=== PATIENT | female | born 1990 | race African-American/Black ===

== ENCOUNTER 2017-01-23 10:17 | Emergency (ER) | payer BC ==
[~2017-01-23] VITALS: Ht 165.1 cm; Wt 101.0 kg
[~2017-01-23 10:17] MED LIST: ALBU6.7H INH; CLAR10 PO; FAMO20TA8 PO; Fluticasone Propionate BOTHNSTRLS; Guaifenesin PO; LEVO250T2 PO; P20 PO; PRED5TAB48 PO
[2017-01-23] MEDS ORDERED: METHYLPREDNISOLONE SOD SUCC 125 MG/2 ML VIAL IV STA (11:16)
[2017-01-23] MEDS ORDERED: MAGNESIUM 2 G PREMIX 50 ML IV ONE (11:30)
[2017-01-23] MEDS ORDERED: AZITHROMYCIN 500 MG TABLET PO ONE (11:30)
[2017-01-23] MEDS ORDERED: IPRATROPIUM/ALBUTEROL 0.5-3(2.5)MG/3ML NEB HHN ONE (11:30)
[2017-01-23 11:33] LABS: BG BASE EXCESS 2.1 mmol/L (-2.0-2.0); BG CARBOXYHEMOGLOBIN 0.5 % (0.5-1.5); BG DEOXYHEMOGLOBIN 3.4 % (0.0-5.0); BG FRACTION INSPIRED OXYGEN 28; BG HCO3 ACT 27.3 mmol/L (22.0-26.0); BG METHEMOGLOBIN 0.3 % (0.0-1.5); BG OXYGEN SATURATION 96.6 % (92.0-98.5); BG OXYHEMOGLOBIN 95.8 % (94.0-97.0); BG PCO2 45.2 mmHg (35.0-45.0); BG PH 7.399 (7.350-7.450); BG PO2 85.4 mmHg (75.0-100.0); BG SAMPLE SITE RIGHT BRACHIAL; BG TOTAL HEMOGLOBIN 12.1 g/dL (12.0-18.0); BG VENT MODE NASAL CANNULA
[2017-01-23 11:58] LABS: BASOPHILS % 1.4 % (0.0-2.0); EOSINOPHILS % 5.3 % (0.0-5.0); HEMATOCRIT. 33.5 % (36.0-48.0); HEMOGLOBIN. 10.9 g/dL (12.0-16.0); LYMPHOCYTES % 17.3 % (20.0-50.0); MEAN CORPUSCULAR HEMOGLOBIN 25.5 pg (28.0-32.0); MEAN CORPUSCULAR VOLUME 78.1 fL (81.0-99.0); MEAN PLATELET VOLUME 7.8 fl (7.4-10.4); MONOCYTES % 5.5 % (2.0-8.0); NEUTROPHILS % 70.5 % (40.0-76.0); PLATELET 356 x1000/uL (130-400); RED BLOOD CELL COUNT 4.28 mill/uL (4.2-5.4); RED CELL DISTRIBUTION WIDTH 15.4 % (11.6-14.6)
[2017-01-23 12:03] LABS: PARTIAL THROMBOPLASTIN TIME 25.4 sec (24.0-34.0); PROTHROMBIN TIME 10.7 sec
[2017-01-23 12:10] LABS: CARBON DIOXIDE 28 mEq/L (21-32); CHLORIDE 106 mEq/L (98-107)
[2017-01-23 12:11] LABS: CREATINE KINASE 401 IU/L (26-192); TROPONIN I < 0.02 ng/mL (0.00-0.04)
[2017-01-23 12:22] LABS: HCG SCREEN POSITIVE
[2017-01-23 17:26] VITALS: BP 125/63
[2017-01-23] MEDS ORDERED: ALBUTEROL (0.5%) 2.5MG/0.5ML NEB HHN ONE (17:30)
== END 2017-01-23 17:45 | disposition home or self-care (01) ==
LOC: ER 11:02
DX: J45.901 Unspecified asthma with (acute) exacerbation (principal); F17.290 Nicotine dependence, other tobacco product, uncomplicated
CPT/HCPCS: 36415; 36600; 80053; 82375; 82550; 82805; 83605; 83690; 83880; 84443; 84484; 84702; 84703; 85025; 85610; 85730; 87040; 93005; 94640; 96365; 96366; 96375; 99285; 99406; J2930; J3475; J7611; Z7610; J7620

== ENCOUNTER 2017-03-29 13:09 | Emergency (ER) | payer BC ==
[~2017-03-29] VITALS: Ht 165.1 cm; Wt 105.0 kg
[2017-03-29] MEDS ORDERED: IBUPROFEN 600MG TABLET ONE (18:18)
[2017-03-29 18:25] VITALS: BP 137/90
[2017-03-29] MEDS ORDERED: IBUPROFEN 600MG TABLET PO ONE (18:30)
== END 2017-03-29 18:33 | disposition home or self-care (01) ==
LOC: ER 15:48
DX: R07.9 Chest pain, unspecified (principal); M25.512 Pain in left shoulder
CPT/HCPCS: 73030; 81025; 93005; 99284; A4565

== ENCOUNTER 2017-05-21 12:31 | Emergency (ER) | payer BC ==
[~2017-05-21] VITALS: Ht 165.1 cm; Wt 105.0 kg
[2017-05-21] MEDS ORDERED: ALBUTEROL (0.083%) 2.5MG/3ML NEB HHN STA (17:28)
[2017-05-21] MEDS ORDERED: IPRATROPIUM BROMIDE (0.02%) 0.5MG/2.5ML NEB HHN STA (17:28)
[2017-05-21] MEDS ORDERED: METHYLPREDNISOLONE SOD SUCC 125 MG/2 ML VIAL IV STA (17:28)
[2017-05-21] MEDS ORDERED: METHYLPREDNISOLONE SOD SUCC 125 MG/2 ML VIAL IM SCH (17:30)
[2017-05-21 18:34] VITALS: BP 144/78
== END 2017-05-21 19:12 | disposition home or self-care (01) ==
LOC: ER 13:23
DX: J45.901 Unspecified asthma with (acute) exacerbation (principal); J06.9 Acute upper respiratory infection, unspecified; F12.10 Cannabis abuse, uncomplicated; Z98.890 Other specified postprocedural states
CPT/HCPCS: 71010; 94644; 96372; 99285; J2930; J7611; Z7610

== ENCOUNTER 2017-07-09 06:36 | Emergency (ER) | payer BC, MEDICAID ==
[~2017-07-09] VITALS: Ht 165.1 cm; Wt 105.0 kg
[2017-07-09] MEDS: METHYLPREDNISOLONE SOD SUCC 125 MG/2 ML VIAL IV STA (07:16)
[2017-07-09] MEDS: ALBUTEROL (0.083%) 2.5MG/3ML NEB HHN STA ×2 (07:27→09:04)
[2017-07-09] MEDS: IPRATROPIUM BROMIDE (0.02%) 0.5MG/2.5ML NEB HHN STA ×2 (07:27→09:47)
[2017-07-09] MEDS: IBUPROFEN 600MG TABLET PO ONE (09:46)
[2017-07-09 11:08] VITALS: BP 127/66
[2017-07-16] MEDS ORDERED: AMLO10TA80 PO (11:23)
== END 2017-07-09 11:12 | disposition home or self-care (01) ==
LOC: ER 06:36
DX: J45.901 Unspecified asthma with (acute) exacerbation (principal); I51.7 Cardiomegaly; J84.9 Interstitial pulmonary disease, unspecified; F12.10 Cannabis abuse, uncomplicated
CPT/HCPCS: 71045; 81025; 94640; 96374; 99284; J2930; J7611; Z7610

== ENCOUNTER 2017-09-13 06:11 | Emergency (ER) | payer MEDICAID ==
[~2017-09-13] VITALS: Ht 165.1 cm; Wt 103.0 kg
[~2017-09-13 06:11] MED LIST changes: +AMLO10TA80 PO; -Guaifenesin PO; -LEVO250T2 PO; -P20 PO; -PRED5TAB48 PO
[2017-09-13] MEDS ORDERED: IPRATROPIUM/ALBUTEROL 0.5-3(2.5)MG/3ML NEB HHN ONE (07:00)
[2017-09-13 09:02] VITALS: BP 140/89
== END 2017-09-13 09:18 | disposition home or self-care (01) ==
LOC: ER 06:29
DX: J20.9 Acute bronchitis, unspecified (principal); J45.909 Unspecified asthma, uncomplicated; Z98.890 Other specified postprocedural states
CPT/HCPCS: 94640; 99284; J7620

== ENCOUNTER 2018-05-14 07:58 | Emergency (ER) | payer MEDICAID ==
[~2018-05-14] VITALS: Ht 165.1 cm; Wt 107.0 kg
[~2018-05-14 07:58] MED LIST changes: -AMLO10TA80 PO; +AMLO5TAB88 PO; -CLAR10 PO; -FAMO20TA8 PO; -Fluticasone Propionate BOTHNSTRLS; +METF500T PO; +P20 PO
[2018-05-14] MEDS ORDERED: METHYLPREDNISOLONE SOD SUCC 125 MG/2 ML VIAL IV STA (08:24)
[2018-05-14] MEDS ORDERED: ALBUTEROL (0.083%) 2.5MG/3ML NEB HHN STA (08:24)
[2018-05-14] MEDS ORDERED: IPRATROPIUM BROMIDE (0.02%) 0.5MG/2.5ML NEB HHN STA (08:24)
[2018-05-14] MEDS ORDERED: ACETAMINOPHEN WITH CODEINE 300/30MG TABLET PO ONE (09:30)
[2018-05-14 12:15] VITALS: BP 133/80
== END 2018-05-14 12:25 | disposition home or self-care (01) ==
LOC: ER 09:09
DX: J45.901 Unspecified asthma with (acute) exacerbation (principal); I10 Essential (primary) hypertension; Z98.890 Other specified postprocedural states; Z79.899 Other long term (current) drug therapy
CPT/HCPCS: 71045; 81025; 93005; 94640; 96374; 99283; J2930; J7611

== ENCOUNTER 2018-06-03 08:48 | Emergency (ER) | payer MEDICAID ==
[~2018-06-03] VITALS: Ht 165.1 cm; Wt 102.7 kg
[2018-06-03] MEDS ORDERED: SODIUM CHLORIDE 0.9% 1,000 ML IV ONE (09:21)
[2018-06-03] MEDS ORDERED: METHYLPREDNISOLONE SOD SUCC 125 MG/2 ML VIAL IV STA (09:21)
[2018-06-03] MEDS ORDERED: IPRATROPIUM BROMIDE (0.02%) 0.5MG/2.5ML NEB HHN STA (09:21)
[2018-06-03] MEDS ORDERED: ALBUTEROL (0.083%) 2.5MG/3ML NEB HHN SCH (09:30)
[2018-06-03 09:48] LABS: EOSINOPHILS % 3.5 % (0.0-5.0); HEMATOCRIT. 40.1 % (36.0-48.0); LYMPHOCYTES % 21.5 % (20.0-50.0); MEAN CORPUSCULAR HEMOGLOBIN 25.9 pg (28.0-32.0); MEAN CORPUSCULAR VOLUME 79.9 fL (81.0-99.0); MEAN PLATELET VOLUME 8.2 fl (7.4-10.4); MONOCYTES % 6.5 % (2.0-8.0); NEUTROPHILS % 67.5 % (40.0-76.0); PLATELET 331 x1000/uL (130-400); RED BLOOD CELL COUNT 5.02 mill/uL (4.2-5.4); RED CELL DISTRIBUTION WIDTH 16.2 % (11.6-14.6)
[2018-06-03 10:02] LABS: CHLORIDE 104 mEq/L (98-107)
[2018-06-03 10:11] LABS: HCG SCREEN NEGATIVE
[2018-06-03 11:02] VITALS: BP 151/81
== END 2018-06-03 11:29 | disposition home or self-care (01) ==
LOC: ER 08:48
DX: J45.901 Unspecified asthma with (acute) exacerbation (principal); E11.9 Type 2 diabetes mellitus without complications; I10 Essential (primary) hypertension; Z98.890 Other specified postprocedural states
CPT/HCPCS: 36415; 71045; 80053; 81025; 83605; 84484; 84703; 85025; 93005; 94640; 96374; 99285; J2930; J7030; J7611

== ENCOUNTER 2018-06-14 10:52 | Emergency (ER) | payer MEDICAID ==
[~2018-06-14] VITALS: Ht 165.1 cm; Wt 105.0 kg
[2018-06-14] MEDS ORDERED: IPRATROPIUM BROMIDE (0.02%) 0.5MG/2.5ML NEB HHN STA (11:51)
[2018-06-14] MEDS ORDERED: ALBUTEROL (0.083%) 2.5MG/3ML NEB HHN STA (11:51)
[2018-06-14] MEDS ORDERED: PREDNISONE 20MG TABLET PO STA (11:51)
[2018-06-14 13:39] VITALS: BP 144/77
== END 2018-06-14 13:43 | disposition home or self-care (01) ==
LOC: ER 11:38
DX: J45.901 Unspecified asthma with (acute) exacerbation (principal); J40 Bronchitis, not specified as acute or chronic; E11.9 Type 2 diabetes mellitus without complications; I10 Essential (primary) hypertension; Z98.890 Other specified postprocedural states; Z79.899 Other long term (current) drug therapy
CPT/HCPCS: 94640; 99283; J7512; J7611

== ENCOUNTER 2018-07-23 09:01 | Inpatient (IN) | payer MEDICAID ==
[~2018-07-23] VITALS: Ht 165.1 cm; Wt 104.8 kg
[2018-07-23] MEDS ORDERED: ALBUTEROL (0.083%) 2.5MG/3ML NEB HHN STA ×2 (10:32→15:36)
[2018-07-23] MEDS ORDERED: IPRATROPIUM BROMIDE (0.02%) 0.5MG/2.5ML NEB HHN STA ×2 (10:32→15:36)
[2018-07-23] MEDS ORDERED: PREDNISONE 20MG TABLET PO STA (10:32)
[2018-07-23] MEDS ORDERED: METHYLPREDNISOLONE SOD SUCC 125 MG/2 ML VIAL IV STA (10:51)
[2018-07-23] MEDS ORDERED: MAGNESIUM 2 G PREMIX 50 ML IV STA (10:51)
[2018-07-23] MEDS ORDERED: IPRATROPIUM/ALBUTEROL 0.5-3(2.5)MG/3ML NEB ONE (10:52)
[2018-07-23] MEDS ORDERED: SODIUM CHLORIDE 0.9% 1000ML BAG (SEPSIS BOLUS) IV ONE (11:00)
[2018-07-23 11:10] LABS: CHLORIDE 105 mEq/L (98-107)
[2018-07-23 11:12] LABS: PROTHROMBIN TIME 10.3 sec (9.1-11.1)
[2018-07-23 11:16] LABS: BASOPHILS % 0.8 % (0.0-2.0); EOSINOPHILS % 3.5 % (0.0-5.0); HEMATOCRIT. 42.2 % (36.0-48.0); HEMOGLOBIN. 13.5 g/dL (12.0-16.0); LYMPHOCYTES % 17.4 % (20.0-50.0); MEAN CORPUSCULAR VOLUME 80.8 fL (81.0-99.0); MEAN PLATELET VOLUME 8.3 fl (7.4-10.4); MONOCYTES % 5.6 % (2.0-8.0); NEUTROPHILS % 72.7 % (40.0-76.0); PLATELET 315 x1000/uL (130-400); RED BLOOD CELL COUNT 5.22 mill/uL (4.2-5.4); RED CELL DISTRIBUTION WIDTH 16.6 % (11.6-14.6)
[2018-07-23 11:31] LABS: CLARITY URINE CLOUDY (CLEAR); COLOR URINE YELLOW (YELLOW); KETONES URINE NEGATIVE (NEGATIVE); LEUKOCYTE ESTERASE URINE 1+ (NEGATIVE); NITRITE URINE NEGATIVE (NEGATIVE); OCCULT BLOOD URINE NEGATIVE (NEGATIVE); PROTEIN URINE NEGATIVE (NEGATIVE); SPECIFIC GRAVITY URINE 1.026 (1.005-1.030)
[2018-07-23] MEDS ORDERED: ASPIRIN 81MG TABLET PO ONE (11:45)
[2018-07-23] MEDS ORDERED: LEVOFLOXACIN 500MG PREMIX 100 ML IV ONE (13:45)
[2018-07-23] MEDS ORDERED: DEXTROSE 50% WATER 50ML SYRINGE IV PRN (17:00)
[2018-07-23] MEDS ORDERED: GUAIFENESIN-DM 200MG-20MG/10ML UDC PO PRN (17:00)
[2018-07-23] MEDS ORDERED: IPRATROPIUM/ALBUTEROL 0.5-3(2.5)MG/3ML NEB HHN PRN (17:00)
[2018-07-23] MEDS ORDERED: ONDANSETRON HCL 4MG/2ML INJ IV PRN (17:00)
[2018-07-23] MEDS ORDERED: LEVOFLOXACIN 500MG PREMIX 100 ML IV SCH (21:30)
[2018-07-23 22:37] VITALS: BP 170/104
[2018-07-23 23:00] VITALS: BP 180/114
[2018-07-24] VITALS: BP 147/82
[2018-07-24] MEDS: METHYLPREDNISOLONE SOD SUCC 40 MG/ML VIAL IV SCH ×2 (00:12→08:42)
[2018-07-24] MEDS: IPRATROPIUM/ALBUTEROL 0.5-3(2.5)MG/3ML NEB HHN SCH ×6 (00:36→20:21)
[2018-07-24 04:00] VITALS: BP 128/76
[2018-07-24] MEDS: BLOOD SUGAR DIAGNOSTIC STRIP TEST SCH ×4 (07:40→20:31)
[2018-07-24 07:54] LABS: HEMATOCRIT. 39.8 % (36.0-48.0); HEMOGLOBIN. 12.9 g/dL (12.0-16.0); MEAN CORPUSCULAR HEMOGLOBIN 25.9 pg (28.0-32.0); MEAN PLATELET VOLUME 8.4 fl (7.4-10.4); PLATELET 303 x1000/uL (130-400); RED BLOOD CELL COUNT 4.97 mill/uL (4.2-5.4); RED CELL DISTRIBUTION WIDTH 16.8 % (11.6-14.6)
[2018-07-24 08:00] VITALS: BP 146/82
[2018-07-24 08:03] LABS: CHLORIDE 104 mEq/L (98-107)
[2018-07-24] MEDS: ACETAMINOPHEN 325MG TABLET PO PRN ×2 (08:42→17:42)
[2018-07-24] MEDS: ENOXAPARIN 30MG/0.3ML SYR SUBCUT SCH ×2 (08:42→20:31)
[2018-07-24] MEDS: INSULIN LISPRO 100 UNITS/ML SUBCUT SCH ×4 (08:45→20:32)
[2018-07-24] MEDS: AZITHROMYCIN 500 MG TABLET PO SCH (08:45)
[2018-07-24 09:00] LABS: *AMPHETAMINES SCREEN URINE NEGATIVE (NEGATIVE); *BARBITURATES SCREEN URINE NEGATIVE (NEGATIVE)
[2018-07-24 09:01] LABS: *BENZODIAZEPINES SCREEN URINE NEGATIVE (NEGATIVE); *COCAINE SCREEN URINE NEGATIVE (NEGATIVE); METHADONE URINE SCREEN NEGATIVE (NEGATIVE); OPIATES URINE SCREEN NEGATIVE (NEGATIVE); PHENCYCLIDINE URINE SCREEN NEGATIVE (NEGATIVE)
[2018-07-24 09:02] LABS: CANNABINOID URINE SCREEN PRESUMTIVE POSITIVE (NEGATIVE)
[2018-07-24 12:45] VITALS: BP 168/97
[2018-07-24] MEDS ORDERED: BUDESONIDE 0.5MG/2ML NEB HHN SCH (14:30)
[2018-07-24 16:00] VITALS: BP 126/67
[2018-07-24] MEDS ORDERED: MONTELUKAST SODIUM 10MG TABLET PO SCH (17:00)
[2018-07-24] MEDS: LORATADINE 10MG TABLET PO SCH (17:46)
[2018-07-24] MEDS: PREDNISONE 20MG TABLET PO SCH (17:47)
[2018-07-24 20:00] VITALS: BP 138/83
[2018-07-24] MEDS: FAMOTIDINE 20MG/2ML VIAL IV SCH (20:31)
[2018-07-24] MEDS ORDERED: HYDROCODONE/ACETAMINOPHEN 5/325MG TABLET PO PRN (22:15)
[2018-07-25] VITALS: BP 153/91
[2018-07-25] MEDS: IPRATROPIUM/ALBUTEROL 0.5-3(2.5)MG/3ML NEB HHN SCH ×4 (01:10→12:43)
[2018-07-25 04:00] VITALS: BP 142/84
[2018-07-25] MEDS: BLOOD SUGAR DIAGNOSTIC STRIP TEST SCH ×2 (07:40→11:54)
[2018-07-25 08:00] VITALS: BP 152/60
[2018-07-25] MEDS: PREDNISONE 20MG TABLET PO SCH (09:38)
[2018-07-25] MEDS: AZITHROMYCIN 500 MG TABLET PO SCH (09:38)
[2018-07-25] MEDS: LORATADINE 10MG TABLET PO SCH (09:38)
[2018-07-25] MEDS: FAMOTIDINE 20MG/2ML VIAL IV SCH (09:38)
[2018-07-25] MEDS: INSULIN LISPRO 100 UNITS/ML SUBCUT SCH ×2 (09:40→11:56)
[2018-07-25] MEDS: ENOXAPARIN 30MG/0.3ML SYR SUBCUT SCH (09:40)
[2018-07-25] MEDS: ACETAMINOPHEN 325MG TABLET PO PRN (09:46)
[2018-07-25 12:00] VITALS: BP 148/87
[2018-07-25 12:01] VITALS: BP 148/85
[2018-07-25 12:46] LABS: PLATELET ESTIMATE NORMAL
== END 2018-07-25 16:00 | disposition home or self-care (01) | DRG 133 ==
LOC: ER 09:08 → 7WST 15:38 → EDBEDREQTM 15:42 → EDBEDREQ 15:42 → ENRESERV 21:19
PROVIDERS: ADMIT Internal Medicine; ATTEND Internal Medicine
DX: J96.00 Acute respiratory failure, unspecified whether with hypoxia or hypercapnia (principal); R65.10 Systemic inflammatory response syndrome (SIRS) of non-infectious origin without acute organ dysfunction; J45.901 Unspecified asthma with (acute) exacerbation; E11.9 Type 2 diabetes mellitus without complications; D72.829 Elevated white blood cell count, unspecified; E66.9 Obesity, unspecified; F12.90 Cannabis use, unspecified, uncomplicated; N39.0 Urinary tract infection, site not specified; I10 Essential (primary) hypertension; Z82.49 Family history of ischemic heart disease and other diseases of the circulatory system; Z82.5 Family history of asthma and other chronic lower respiratory diseases; Z83.3 Family history of diabetes mellitus; Z98.891 History of uterine scar from previous surgery; Z68.38 Body mass index [BMI] 38.0-38.9, adult; Z88.1 Allergy status to other antibiotic agents
CPT/HCPCS: 36415; 71045; 80048; 80305; 81025; 82962; 83605; 83880; 84145; 84484; 87804; 93005; 93970; 94640; 96365; 96366; 99291; J1650; J1815; J1956; J2920; J2930; J3475; J3490; J7030; J7512; J7611; J7620; J7626

== ENCOUNTER 2018-08-12 04:49 | Emergency (ER) | payer MEDICAID ==
[~2018-08-12] VITALS: Ht 165.1 cm; Wt 115.0 kg
[2018-08-12] MEDS ORDERED: ACETAMINOPHEN 500MG TABLET PO ONE (05:45)
[2018-08-12 06:05] LABS: HEMATOCRIT. 39.4 % (36.0-48.0); HEMOGLOBIN. 12.7 g/dL (12.0-16.0); MEAN CORPUSCULAR VOLUME 80.8 fL (81.0-99.0); MEAN PLATELET VOLUME 7.9 fl (7.4-10.4); PLATELET 262 x1000/uL (130-400); RED BLOOD CELL COUNT 4.87 mill/uL (4.2-5.4)
[2018-08-12 06:10] LABS: CHLORIDE 102 mEq/L (98-107)
[2018-08-12 06:33] LABS: CLARITY URINE CLOUDY (CLEAR); COLOR URINE YELLOW (YELLOW); KETONES URINE TRACE (NEGATIVE); LEUKOCYTE ESTERASE URINE NEGATIVE (NEGATIVE); NITRITE URINE NEGATIVE (NEGATIVE); OCCULT BLOOD URINE NEGATIVE (NEGATIVE); PROTEIN URINE 1+ (NEGATIVE); SPECIFIC GRAVITY URINE 1.025 (1.005-1.030)
[2018-08-12] MEDS ORDERED: ALBUTEROL (0.083%) 2.5MG/3ML NEB HHN STA ×2 (06:40→08:26)
[2018-08-12] MEDS ORDERED: SODIUM CHLORIDE 0.9% 1,000 ML IV ONE (06:40)
[2018-08-12] MEDS ORDERED: PREDNISONE 20MG TABLET PO STA (06:40)
[2018-08-12] MEDS ORDERED: IPRATROPIUM BROMIDE (0.02%) 0.5MG/2.5ML NEB HHN STA (06:40)
[2018-08-12 07:10] LABS: PLATELET ESTIMATE NORMAL
[2018-08-12 11:05] VITALS: BP 137/67
== END 2018-08-12 11:07 | disposition home or self-care (01) ==
LOC: ER 04:49
DX: J45.901 Unspecified asthma with (acute) exacerbation (principal)
CPT/HCPCS: 36415; 71045; 80048; 81003; 81025; 85025; 87804; 94640; 99284; J7030; J7512; J7611; Z7610

== ENCOUNTER 2018-08-14 09:32 | Inpatient (IN) | payer MEDICAID ==
[~2018-08-14] VITALS: Ht 162.6 cm; Wt 102.1 kg
[2018-08-14] MEDS ORDERED: IPRATROPIUM BROMIDE (0.02%) 0.5MG/2.5ML NEB HHN STA (10:32)
[2018-08-14] MEDS ORDERED: METHYLPREDNISOLONE SOD SUCC 125 MG/2 ML VIAL IV STA (10:32)
[2018-08-14] MEDS ORDERED: ALBUTEROL (0.083%) 2.5MG/3ML NEB HHN STA ×2 (10:32→13:13)
[2018-08-14 11:06] LABS: BASOPHILS % 0.5 % (0.0-2.0); EOSINOPHILS % 0.1 % (0.0-5.0); HEMOGLOBIN. 12.6 g/dL (12.0-16.0); LYMPHOCYTES % 12.9 % (20.0-50.0); MEAN CORPUSCULAR HEMOGLOBIN 26.1 pg (28.0-32.0); MEAN PLATELET VOLUME 8.1 fl (7.4-10.4); MONOCYTES % 9.4 % (2.0-8.0); NEUTROPHILS % 77.1 % (40.0-76.0); PLATELET 255 x1000/uL (130-400); RED BLOOD CELL COUNT 4.82 mill/uL (4.2-5.4); RED CELL DISTRIBUTION WIDTH 16.3 % (11.6-14.6)
[2018-08-14 11:13] LABS: CHLORIDE 102 mEq/L (98-107)
[2018-08-14 15:16] LABS: UCG SCREEN NEGATIVE
[2018-08-14] MEDS ORDERED: METHYLPREDNISOLONE SOD SUCC 125 MG/2 ML VIAL IV NR (16:15)
[2018-08-14] MEDS ORDERED: IPRATROPIUM/ALBUTEROL 0.5-3(2.5)MG/3ML NEB HHN SCH (20:00)
[2018-08-14] MEDS ORDERED: METHYLPREDNISOLONE SOD SUCC 125 MG/2 ML VIAL IV SCH (23:30)
[2018-08-15] VITALS (7 sets, daily range): BP systolic 109–149; BP diastolic 52–86
[2018-08-15] MEDS ORDERED: IPRATROPIUM/ALBUTEROL 0.5-3(2.5)MG/3ML NEB HHN PRN (02:00)
[2018-08-15] MEDS ORDERED: DEXTROSE 50% WATER 50ML SYRINGE IV PRN (02:00)
[2018-08-15] MEDS: CEFTRIAXONE 1,000 MG in DEXTROSE 5% WATER 50 ML IV SCH (03:17)
[2018-08-15] MEDS: IPRATROPIUM/ALBUTEROL 0.5-3(2.5)MG/3ML NEB HHN SCH ×5 (04:10→20:11)
[2018-08-15 06:19] LABS: CHLORIDE 99 mEq/L (98-107)
[2018-08-15] MEDS: BLOOD SUGAR DIAGNOSTIC STRIP TEST SCH ×4 (07:40→21:00)
[2018-08-15] MEDS ORDERED: METFORMIN HCL 1000 MG PO SCH (08:10)
[2018-08-15] MEDS ORDERED: MEDICATION NOT ON FORMULARY EA (Amlodipine Besylate 5 MG) PO SCH (09:00)
[2018-08-15 09:02] LABS: BASOPHILS % 0.3 % (0.0-2.0); EOSINOPHILS % 0.5 % (0.0-5.0); HEMOGLOBIN. 13.6 g/dL (12.0-16.0); LYMPHOCYTES % 12.2 % (20.0-50.0); MEAN CORPUSCULAR HEMOGLOBIN 25.8 pg (28.0-32.0); MEAN CORPUSCULAR VOLUME 85.5 fL (81.0-99.0); MONOCYTES % 3.1 % (2.0-8.0); NEUTROPHILS % 83.9 % (40.0-76.0); PLATELET 242 x1000/uL (130-400); RED BLOOD CELL COUNT 5.26 mill/uL (4.2-5.4); RED CELL DISTRIBUTION WIDTH 17.2 % (11.6-14.6)
[2018-08-15] MEDS: AMLODIPINE 5MG TABLET PO SCH ×2 (09:09→21:12)
[2018-08-15] MEDS: PREDNISONE 20MG TABLET PO SCH (09:09)
[2018-08-15] MEDS: METFORMIN HCL 500MG TABLET PO SCH ×2 (09:09→18:21)
[2018-08-15] MEDS: INSULIN LISPRO 100 UNITS/ML SUBCUT SCH ×4 (09:12→21:00)
[2018-08-15] MEDS ORDERED: INFLUENZA VIRUS VACCINE(AFLURIA) 0.5ML SYR IM ONE (12:00)
[2018-08-15] MEDS ORDERED: ONDANSETRON HCL 4MG/2ML INJ IV PRN (15:45)
[2018-08-15] MEDS: ACETAMINOPHEN 325MG TABLET PO PRN (16:31)
[2018-08-15] MEDS ORDERED: MONTELUKAST SODIUM 10MG TABLET PO SCH (17:00)
[2018-08-15] MEDS: BUDESONIDE 0.5MG/2ML NEB HHN SCH (20:12)
[2018-08-15] MEDS: GUAIFENESIN 600MG ER TABLET PO SCH (21:10)
[2018-08-16] VITALS: BP 129/79
[2018-08-16] MEDS: CEFTRIAXONE 1,000 MG in DEXTROSE 5% WATER 50 ML IV SCH (02:29)
[2018-08-16 04:00] VITALS: BP 149/81
[2018-08-16] MEDS: IPRATROPIUM/ALBUTEROL 0.5-3(2.5)MG/3ML NEB HHN SCH ×4 (04:00→12:46)
[2018-08-16] MEDS: BLOOD SUGAR DIAGNOSTIC STRIP TEST SCH ×2 (06:07→12:40)
[2018-08-16] MEDS ORDERED: OMEPRAZOLE 20MG CAPSULE EXTENDED RELEASE PO SCH (07:40)
[2018-08-16 08:00] VITALS: BP 123/66
[2018-08-16] MEDS: INSULIN LISPRO 100 UNITS/ML SUBCUT SCH ×2 (08:10→13:22)
[2018-08-16] MEDS: BUDESONIDE 0.5MG/2ML NEB HHN SCH (08:33)
[2018-08-16] MEDS: ACETAMINOPHEN 325MG TABLET PO PRN (08:40)
[2018-08-16] MEDS: METFORMIN HCL 500MG TABLET PO SCH (08:41)
[2018-08-16] MEDS: GUAIFENESIN 600MG ER TABLET PO SCH (08:41)
[2018-08-16] MEDS: AMLODIPINE 5MG TABLET PO SCH (08:41)
[2018-08-16] MEDS: PREDNISONE 20MG TABLET PO SCH (08:41)
[2018-08-16 12:00] VITALS: BP 138/63
[2018-08-16 13:29] VITALS: BP 138/63
== END 2018-08-16 14:00 | disposition home or self-care (01) | DRG 141 ==
LOC: ER 09:32 → 7WST 14:19 → ENRESERV 22:46
PROVIDERS: ADMIT Internal Medicine; ATTEND Internal Medicine
DX: J45.901 Unspecified asthma with (acute) exacerbation (principal); E11.9 Type 2 diabetes mellitus without complications; E66.9 Obesity, unspecified; I10 Essential (primary) hypertension; Z98.891 History of uterine scar from previous surgery; Z68.38 Body mass index [BMI] 38.0-38.9, adult; Z88.1 Allergy status to other antibiotic agents; Z79.51 Long term (current) use of inhaled steroids; Z79.84 Long term (current) use of oral hypoglycemic drugs; Z79.899 Other long term (current) drug therapy
CPT/HCPCS: 36415; 71045; 80048; 81025; 82962; 83880; 84484; 90686; 93005; 94640; 96374; 99285; J0696; J1815; J2405; J2930; J7050; J7060; J7512; J7611; J7620; J7626

== ENCOUNTER 2018-11-16 09:30 | Emergency (ER) | payer MEDICAID ==
[~2018-11-16] VITALS: Ht 165.1 cm; Wt 106.0 kg
[2018-11-16] MEDS ORDERED: PREDNISONE 20MG TABLET PO ONE (12:00)
[2018-11-16] MEDS ORDERED: ALBUTEROL (0.083%) 2.5MG/3ML NEB HHN ONE (12:00)
[2018-11-16] MEDS ORDERED: ALBUTEROL (0.083%) 2.5MG/3ML NEB ONE (13:25)
[2018-11-16] MEDS ORDERED: ALBUTEROL (0.5%) 2.5MG/0.5ML NEB HHN ONE (13:30)
[2018-11-16] MEDS ORDERED: IPRATROPIUM BROMIDE (0.02%) 0.5MG/2.5ML NEB HHN ONE (13:30)
[2018-11-16 15:50] VITALS: BP 141/80
== END 2018-11-16 16:00 | disposition home or self-care (01) ==
LOC: ER 09:30
DX: J45.901 Unspecified asthma with (acute) exacerbation (principal); E11.9 Type 2 diabetes mellitus without complications; I10 Essential (primary) hypertension; Z98.890 Other specified postprocedural states; Z79.84 Long term (current) use of oral hypoglycemic drugs; Z88.3 Allergy status to other anti-infective agents
CPT/HCPCS: 93005; 94640; 99284; J7512; J7611; Z7610

== ENCOUNTER 2018-12-09 07:04 | Emergency (ER) | payer MEDICAID ==
[~2018-12-09] VITALS: Ht 165.1 cm; Wt 105.0 kg
[2018-12-09] MEDS ORDERED: IPRATROPIUM/ALBUTEROL 0.5-3(2.5)MG/3ML NEB HHN ONE (07:45)
[2018-12-09] MEDS ORDERED: DEXAMETHASONE 4MG/ML 1ML VIAL IM ONE (08:30)
[2018-12-09] MEDS ORDERED: DEXAMETHASONE 10 MG/ML VIAL IM NR (08:45)
[2018-12-09 08:57] VITALS: BP 118/78
== END 2018-12-09 08:58 | disposition home or self-care (01) ==
LOC: ER 07:04
DX: J06.9 Acute upper respiratory infection, unspecified (principal); J45.901 Unspecified asthma with (acute) exacerbation
CPT/HCPCS: 71045; 94640; 96372; 99283; J1100; J7620

== ENCOUNTER 2019-01-19 11:12 | Emergency (ER) | payer MEDICAID ==
[~2019-01-19] VITALS: Ht 165.1 cm; Wt 106.0 kg
[2019-01-19] MEDS ORDERED: ALBUTEROL (0.083%) 2.5MG/3ML NEB HHN STA (11:30)
[2019-01-19] MEDS ORDERED: IPRATROPIUM BROMIDE (0.02%) 0.5MG/2.5ML NEB HHN STA (11:30)
[2019-01-19] MEDS ORDERED: METHYLPREDNISOLONE SOD SUCC 125 MG/2 ML VIAL IV STA (11:30)
[2019-01-19] MEDS ORDERED: ONDANSETRON HCL 4MG/2ML INJ IV STA (11:30)
[2019-01-19] MEDS ORDERED: SODIUM CHLORIDE 0.9% 1,000 ML IV ONE (11:30)
[2019-01-19 12:06] LABS: BASOPHILS % 0.4 % (0.0-2.0); EOSINOPHILS % 3.5 % (0.0-5.0); HEMATOCRIT. 37.8 % (36.0-48.0); HEMOGLOBIN. 12.4 g/dL (12.0-16.0); LYMPHOCYTES % 19.7 % (20.0-50.0); MEAN CORPUSCULAR HEMOGLOBIN 25.9 pg (28.0-32.0); MEAN PLATELET VOLUME 8.3 fl (7.4-10.4); MONOCYTES % 7.7 % (2.0-8.0); NEUTROPHILS % 68.7 % (40.0-76.0); PLATELET 298 x1000/uL (130-400); RED BLOOD CELL COUNT 4.79 mill/uL (4.2-5.4); RED CELL DISTRIBUTION WIDTH 15.6 % (11.6-14.6)
[2019-01-19 12:12] LABS: CHLORIDE 106 mEq/L (98-107)
[2019-01-19 12:28] LABS: CLARITY URINE CLOUDY (CLEAR); COLOR URINE YELLOW (YELLOW); KETONES URINE NEGATIVE (NEGATIVE); LEUKOCYTE ESTERASE URINE 1+ (NEGATIVE); NITRITE URINE NEGATIVE (NEGATIVE); OCCULT BLOOD URINE NEGATIVE (NEGATIVE); PH URINE >=9.0 (4.5-8.0); PROTEIN URINE NEGATIVE (NEGATIVE); UROBILINOGEN URINE 0.2 E.U./dL (0.2-1.0)
[2019-01-19] MEDS ORDERED: IBUPROFEN 600MG TABLET PO ONE (13:15)
[2019-01-19 14:27] VITALS: BP 135/85
== END 2019-01-19 14:30 | disposition home or self-care (01) ==
LOC: ER 11:52
DX: J45.901 Unspecified asthma with (acute) exacerbation (principal); N39.0 Urinary tract infection, site not specified; R68.2 Dry mouth, unspecified; R42 Dizziness and giddiness; E11.9 Type 2 diabetes mellitus without complications; I10 Essential (primary) hypertension; Z98.890 Other specified postprocedural states; Z88.1 Allergy status to other antibiotic agents; Z79.84 Long term (current) use of oral hypoglycemic drugs; Z79.899 Other long term (current) drug therapy
CPT/HCPCS: 36415; 71045; 80053; 81003; 81025; 85025; 87086; 93005; 94644; 96361; 96374; 96375; 99285; J2405; J2930; J7030; J7611

== ENCOUNTER 2019-03-21 18:53 | Emergency (ER) | payer BC ==
[~2019-03-21] VITALS: Ht 165.1 cm; Wt 106.0 kg
[2019-03-21 19:30] VITALS: BP 149/89
[2019-03-21] MEDS ORDERED: IPRATROPIUM BROMIDE (0.02%) 0.5MG/2.5ML NEB HHN STA (19:41)
[2019-03-21] MEDS ORDERED: ALBUTEROL (0.083%) 2.5MG/3ML NEB HHN STA (19:41)
[2019-03-21] MEDS ORDERED: PREDNISONE 20MG TABLET PO STA (19:41)
== END 2019-03-21 22:13 | disposition home or self-care (01) ==
LOC: ER 18:53
DX: J45.901 Unspecified asthma with (acute) exacerbation (principal); J39.9 Disease of upper respiratory tract, unspecified; E11.9 Type 2 diabetes mellitus without complications; I10 Essential (primary) hypertension; Z98.890 Other specified postprocedural states; Z88.1 Allergy status to other antibiotic agents; Z79.84 Long term (current) use of oral hypoglycemic drugs; Z79.899 Other long term (current) drug therapy
CPT/HCPCS: 71045; 94644; 99285; J7512; J7611; Z7610

== ENCOUNTER 2019-03-23 05:30 | Inpatient (IN) | payer BC, MEDICAID ==
[~2019-03-23] VITALS: Ht 160 cm; Wt 104.8 kg
[2019-03-23] MEDS ORDERED: MAGNESIUM 2 G PREMIX 50 ML IV STA (05:59)
[2019-03-23] MEDS ORDERED: IPRATROPIUM BROMIDE (0.02%) 0.5MG/2.5ML NEB HHN STA (05:59)
[2019-03-23] MEDS ORDERED: ALBUTEROL (0.083%) 2.5MG/3ML NEB HHN STA (05:59)
[2019-03-23] MEDS ORDERED: METHYLPREDNISOLONE SOD SUCC 125 MG/2 ML VIAL IV STA (05:59)
[2019-03-23] MEDS ORDERED: SODIUM CHLORIDE 0.9% 1,000 ML IV ONE (05:59)
[2019-03-23 08:13] LABS: BASOPHILS % 0.7 % (0.0-2.0); EOSINOPHILS % 4.1 % (0.0-5.0); HEMATOCRIT. 37.8 % (36.0-48.0); HEMOGLOBIN. 12.2 g/dL (12.0-16.0); LYMPHOCYTES % 14.5 % (20.0-50.0); MEAN CORPUSCULAR VOLUME 80.6 fL (81.0-99.0); MEAN PLATELET VOLUME 8.9 fl (7.4-10.4); MONOCYTES % 8.5 % (2.0-8.0); NEUTROPHILS % 72.2 % (40.0-76.0); PLATELET 265 x1000/uL (130-400); RED BLOOD CELL COUNT 4.69 mill/uL (4.2-5.4); RED CELL DISTRIBUTION WIDTH 15.2 % (11.6-14.6)
[2019-03-23 08:20] LABS: CHLORIDE 107 mEq/L (98-107)
[2019-03-23 08:25] LABS: HCG SCREEN NEGATIVE
[2019-03-23 10:00] VITALS: BP 189/90
[2019-03-23] MEDS ORDERED: HYDROCODONE/ACETAMINOPHEN 5/325MG TABLET PO PRN (10:30)
[2019-03-23] MEDS ORDERED: CLONIDINE 0.1MG TABLET PO PRN (10:30)
[2019-03-23] MEDS ORDERED: ONDANSETRON HCL 4MG/2ML INJ IV PRN (10:30)
[2019-03-23] MEDS ORDERED: ACETAMINOPHEN 325MG TABLET PO PRN (10:30)
[2019-03-23] MEDS ORDERED: LORAZEPAM 0.5MG TABLET PO PRN (10:30)
[2019-03-23] MEDS ORDERED: IPRATROPIUM/ALBUTEROL 0.5-3(2.5)MG/3ML NEB HHN PRN ×2 (10:30→11:15)
[2019-03-23] MEDS ORDERED: LORATADINE 10MG TABLET PO SCH (10:45)
[2019-03-23] MEDS: AMLODIPINE 5MG TABLET PO SCH ×2 (11:39→21:11)
[2019-03-23] MEDS: AZITHROMYCIN 500 MG TABLET PO SCH (11:39)
[2019-03-23] MEDS: FAMOTIDINE 20MG TABLET PO SCH ×2 (11:40→18:16)
[2019-03-23] MEDS: IPRATROPIUM/ALBUTEROL 0.5-3(2.5)MG/3ML NEB HHN SCH ×3 (11:53→21:13)
[2019-03-23 12:00] VITALS: BP 124/67
[2019-03-23] MEDS: METHYLPREDNISOLONE SOD SUCC 125 MG/2 ML VIAL IV SCH ×2 (14:14→21:11)
[2019-03-23 16:16] VITALS: BP 154/87
[2019-03-23] MEDS: MONTELUKAST SODIUM 10MG TABLET PO SCH (18:16)
[2019-03-23 20:00] VITALS: BP 139/78
[2019-03-23] MEDS ORDERED: INFLUENZA VIRUS VACCINE(AFLURIA) 0.5ML SYR IM ONE (22:00)
[2019-03-24] VITALS: BP 115/63
[2019-03-24] MEDS: IPRATROPIUM/ALBUTEROL 0.5-3(2.5)MG/3ML NEB HHN SCH ×7 (00:20→23:57)
[2019-03-24 04:00] VITALS: BP 115/63
[2019-03-24] MEDS: METHYLPREDNISOLONE SOD SUCC 125 MG/2 ML VIAL IV SCH ×2 (05:51→14:51)
[2019-03-24 06:56] LABS: HEMATOCRIT. 38.2 % (36.0-48.0); HEMOGLOBIN. 12.4 g/dL (12.0-16.0); MEAN CORPUSCULAR HEMOGLOBIN 26.2 pg (28.0-32.0); MEAN CORPUSCULAR VOLUME 80.9 fL (81.0-99.0); MEAN PLATELET VOLUME 8.9 fl (7.4-10.4); PLATELET 289 x1000/uL (130-400); RED BLOOD CELL COUNT 4.73 mill/uL (4.2-5.4); RED CELL DISTRIBUTION WIDTH 15.6 % (11.6-14.6)
[2019-03-24 08:00] VITALS: BP 126/76
[2019-03-24 08:21] LABS: CHLORIDE 102 mEq/L (98-107)
[2019-03-24] MEDS: AZITHROMYCIN 500 MG TABLET PO SCH (09:47)
[2019-03-24] MEDS: FAMOTIDINE 20MG TABLET PO SCH ×2 (09:48→17:37)
[2019-03-24] MEDS: GUAIFENESIN-DM 200MG-20MG/10ML UDC PO PRN (09:48)
[2019-03-24] MEDS: DOCUSATE SODIUM 100MG CAPSULE PO PRN (09:48)
[2019-03-24] MEDS: AMLODIPINE 5MG TABLET PO SCH ×2 (09:48→21:10)
[2019-03-24 11:07] LABS: PLATELET ESTIMATE NORMAL
[2019-03-24 12:00] VITALS: BP 135/73
[2019-03-24 16:13] VITALS: BP 133/75
[2019-03-24] MEDS: MONTELUKAST SODIUM 10MG TABLET PO SCH (17:37)
[2019-03-24 20:00] VITALS: BP 145/88
[2019-03-25] VITALS: BP 133/75
[2019-03-25 04:00] VITALS: BP 131/76
[2019-03-25] MEDS: IPRATROPIUM/ALBUTEROL 0.5-3(2.5)MG/3ML NEB HHN SCH ×3 (04:03→12:00)
[2019-03-25 08:00] VITALS: BP 166/88
[2019-03-25] MEDS ORDERED: METHYLPREDNISOLONE SOD SUCC 40 MG/ML VIAL IV SCH (09:00)
[2019-03-25] MEDS: FAMOTIDINE 20MG TABLET PO SCH (09:40)
[2019-03-25] MEDS: DOCUSATE SODIUM 100MG CAPSULE PO PRN (09:40)
[2019-03-25] MEDS: AMLODIPINE 5MG TABLET PO SCH (09:40)
[2019-03-25] MEDS: AZITHROMYCIN 500 MG TABLET PO SCH (09:40)
[2019-03-25] MEDS: GUAIFENESIN-DM 200MG-20MG/10ML UDC PO PRN (09:40)
[2019-03-25 10:28] LABS: BASOPHILS % 0.1 % (0.0-2.0); HEMATOCRIT. 40.3 % (36.0-48.0); HEMOGLOBIN. 12.8 g/dL (12.0-16.0); LYMPHOCYTES % 11.7 % (20.0-50.0); MEAN CORPUSCULAR HEMOGLOBIN 25.8 pg (28.0-32.0); MEAN CORPUSCULAR VOLUME 81.2 fL (81.0-99.0); MEAN PLATELET VOLUME 8.6 fl (7.4-10.4); MONOCYTES % 5.7 % (2.0-8.0); NEUTROPHILS % 82.5 % (40.0-76.0); PLATELET 326 x1000/uL (130-400); RED BLOOD CELL COUNT 4.96 mill/uL (4.2-5.4); RED CELL DISTRIBUTION WIDTH 15.1 % (11.6-14.6)
[2019-03-25 10:50] LABS: CHLORIDE 101 mEq/L (98-107)
[2019-03-25 12:00] VITALS: BP 127/86
[2019-03-25] MEDS ORDERED: MONT10TA21 PO (12:44)
[2019-03-25] MEDS ORDERED: ALBU6.7H INH (12:44)
[2019-03-25] MEDS ORDERED: AZIT500T5 PO (12:44)
[2019-03-25] MEDS ORDERED: FAMO20TA8 PO (12:44)
[2019-03-25 13:51] VITALS: BP 127/86
== END 2019-03-25 15:57 | disposition home or self-care (01) | DRG 133 ==
LOC: ER 05:30 → 7WST 06:25 → ENRESERV 07:35
PROVIDERS: ADMIT Internal Medicine; ATTEND Internal Medicine
DX: J96.01 Acute respiratory failure with hypoxia (principal); J45.901 Unspecified asthma with (acute) exacerbation; I10 Essential (primary) hypertension; E11.9 Type 2 diabetes mellitus without complications; E66.9 Obesity, unspecified; F12.90 Cannabis use, unspecified, uncomplicated; Z60.2 Problems related to living alone; Z82.49 Family history of ischemic heart disease and other diseases of the circulatory system; Z82.5 Family history of asthma and other chronic lower respiratory diseases; Z83.3 Family history of diabetes mellitus; Z79.899 Other long term (current) drug therapy; Z98.891 History of uterine scar from previous surgery; Z68.41 Body mass index [BMI] 40.0-44.9, adult; Z79.84 Long term (current) use of oral hypoglycemic drugs; Z88.8 Allergy status to other drugs, medicaments and biological substances
CPT/HCPCS: 36415; 71045; 80048; 83036; 83605; 83880; 84484; 84703; 90686; 93005; 94640; 94644; 99285; C1893; J2920; J2930; J3475; J7030; J7611; J7620

== ENCOUNTER 2019-05-23 07:41 | Inpatient (IN) | payer MEDICAID ==
[~2019-05-23] VITALS: Ht 157.5 cm; Wt 105.2 kg
[~2019-05-23 07:41] MED LIST changes: +AZIT500T5 PO; +FAMO20TA8 PO; +MONT10TA21 PO
[2019-05-23] MEDS ORDERED: METHYLPREDNISOLONE SOD SUCC 125 MG/2 ML VIAL IV STA (08:53)
[2019-05-23] MEDS ORDERED: IPRATROPIUM BROMIDE (0.02%) 0.5MG/2.5ML NEB HHN STA (08:53)
[2019-05-23] MEDS ORDERED: ALBUTEROL (0.083%) 2.5MG/3ML NEB HHN STA (08:53)
[2019-05-23 09:21] LABS: BASOPHILS % 1.1 % (0.0-2.0); EOSINOPHILS % 8.1 % (0.0-5.0); HEMATOCRIT. 39.2 % (36.0-48.0); HEMOGLOBIN. 12.4 g/dL (12.0-16.0); LYMPHOCYTES % 15.9 % (20.0-50.0); MEAN CORPUSCULAR HEMOGLOBIN 25.7 pg (28.0-32.0); MEAN CORPUSCULAR VOLUME 81.2 fL (81.0-99.0); MEAN PLATELET VOLUME 8.2 fl (7.4-10.4); MONOCYTES % 11.7 % (2.0-8.0); NEUTROPHILS % 63.2 % (40.0-76.0); PLATELET 319 x1000/uL (130-400); RED BLOOD CELL COUNT 4.83 mill/uL (4.2-5.4); RED CELL DISTRIBUTION WIDTH 15.1 % (11.6-14.6)
[2019-05-23 09:24] LABS: CHLORIDE 108 mEq/L (98-107)
[2019-05-23] MEDS ORDERED: IPRATROPIUM/ALBUTEROL 0.5-3(2.5)MG/3ML NEB HHN ONE (15:15)
[2019-05-23 18:00] VITALS: BP 129/80
[2019-05-23 18:08] VITALS: BP 129/80
[2019-05-23] MEDS ORDERED: HYDROCODONE/ACETAMINOPHEN 5/325MG TABLET PO PRN (18:30)
[2019-05-23] MEDS ORDERED: DOCUSATE SODIUM 100MG CAPSULE PO PRN (18:30)
[2019-05-23] MEDS ORDERED: LORAZEPAM 0.5MG TABLET PO PRN (18:30)
[2019-05-23] MEDS ORDERED: ACETAMINOPHEN 325MG TABLET PO PRN (18:30)
[2019-05-23] MEDS ORDERED: GUAIFENESIN 200MG/10ML SUGAR FREE UDC PO PRN (18:30)
[2019-05-23] MEDS ORDERED: CLONIDINE 0.1MG TABLET PO PRN (18:30)
[2019-05-23] MEDS ORDERED: ONDANSETRON HCL 4MG/2ML INJ IV PRN (18:30)
[2019-05-23 20:00] VITALS: BP 132/68
[2019-05-23] MEDS ORDERED: DEXTROSE 50% WATER 50ML SYRINGE IV PRN (20:15)
[2019-05-23] MEDS: BLOOD SUGAR DIAGNOSTIC STRIP TEST SCH (20:27)
[2019-05-23] MEDS: AMLODIPINE 5MG TABLET PO SCH (20:27)
[2019-05-23] MEDS: METHYLPREDNISOLONE SOD SUCC 125 MG/2 ML VIAL IV SCH (20:27)
[2019-05-23] MEDS: IPRATROPIUM/ALBUTEROL 0.5-3(2.5)MG/3ML NEB HHN PRN (20:34)
[2019-05-23] MEDS: INSULIN LISPRO 100 UNITS/ML SUBCUT SCH (20:42)
[2019-05-24] VITALS: BP 143/77
[2019-05-24] MEDS: IPRATROPIUM/ALBUTEROL 0.5-3(2.5)MG/3ML NEB HHN PRN ×3 (00:14→08:39)
[2019-05-24 04:00] VITALS: BP 152/69
[2019-05-24] MEDS: METHYLPREDNISOLONE SOD SUCC 125 MG/2 ML VIAL IV SCH (05:57)
[2019-05-24 07:12] LABS: HCG SCREEN NEGATIVE
[2019-05-24 07:15] LABS: CHLORIDE 106 mEq/L (98-107)
[2019-05-24 07:21] LABS: HEMOGLOBIN. 12.5 g/dL (12.0-16.0); MEAN CORPUSCULAR HEMOGLOBIN 26.3 pg (28.0-32.0); MEAN CORPUSCULAR VOLUME 79.8 fL (81.0-99.0); MEAN PLATELET VOLUME 8.4 fl (7.4-10.4); PLATELET 345 x1000/uL (130-400); RED BLOOD CELL COUNT 4.77 mill/uL (4.2-5.4); RED CELL DISTRIBUTION WIDTH 14.9 % (11.6-14.6)
[2019-05-24 07:22] LABS: LDL CHOLESTEROL 89 mg/dL (5-100)
[2019-05-24 07:23] LABS: HDL CHOLESTEROL 50 mg/dL (40-59)
[2019-05-24] MEDS: BLOOD SUGAR DIAGNOSTIC STRIP TEST SCH ×4 (07:54→21:00)
[2019-05-24 08:00] VITALS: BP 128/62
[2019-05-24 08:55] LABS: *AMPHETAMINES SCREEN URINE NEGATIVE (NEGATIVE); *BARBITURATES SCREEN URINE NEGATIVE (NEGATIVE); *BENZODIAZEPINES SCREEN URINE NEGATIVE (NEGATIVE); *COCAINE SCREEN URINE NEGATIVE (NEGATIVE)
[2019-05-24 08:56] LABS: METHADONE URINE SCREEN NEGATIVE (NEGATIVE); OPIATES URINE SCREEN NEGATIVE (NEGATIVE); PHENCYCLIDINE URINE SCREEN NEGATIVE (NEGATIVE)
[2019-05-24 09:02] LABS: CANNABINOID URINE SCREEN PRESUMTIVE POSITIVE (NEGATIVE)
[2019-05-24] MEDS: LORATADINE 10MG TABLET PO SCH (09:50)
[2019-05-24] MEDS: FAMOTIDINE 20MG TABLET PO SCH ×2 (09:50→17:25)
[2019-05-24] MEDS: AMLODIPINE 5MG TABLET PO SCH ×2 (09:50→20:59)
[2019-05-24] MEDS: INSULIN LISPRO 100 UNITS/ML SUBCUT SCH ×4 (09:51→21:01)
[2019-05-24] MEDS: GUAIFENESIN 600MG ER TABLET PO SCH ×2 (11:00→20:59)
[2019-05-24 12:00] VITALS: BP 132/80
[2019-05-24 12:21] LABS: PLATELET ESTIMATE NORMAL
[2019-05-24] MEDS: METHYLPREDNISOLONE SOD SUCC 40 MG/ML VIAL IV SCH ×2 (13:24→21:00)
[2019-05-24] MEDS: IPRATROPIUM/ALBUTEROL 0.5-3(2.5)MG/3ML NEB HHN SCH ×4 (13:43→23:59)
[2019-05-24 16:00] VITALS: BP 152/81
[2019-05-24] MEDS ORDERED: MONTELUKAST SODIUM 10MG TABLET PO SCH (17:00)
[2019-05-24 20:00] VITALS: BP 155/93
[2019-05-25] VITALS: BP 144/69
[2019-05-25 04:00] VITALS: BP 116/66
[2019-05-25] MEDS: IPRATROPIUM/ALBUTEROL 0.5-3(2.5)MG/3ML NEB HHN SCH ×3 (04:07→12:11)
[2019-05-25] MEDS: METHYLPREDNISOLONE SOD SUCC 40 MG/ML VIAL IV SCH ×2 (05:18→13:39)
[2019-05-25] MEDS: BLOOD SUGAR DIAGNOSTIC STRIP TEST SCH ×2 (07:40→13:26)
[2019-05-25 08:00] VITALS: BP 111/59
[2019-05-25] MEDS: INSULIN LISPRO 100 UNITS/ML SUBCUT SCH ×2 (10:47→13:38)
[2019-05-25] MEDS: FAMOTIDINE 20MG TABLET PO SCH (10:50)
[2019-05-25] MEDS: LORATADINE 10MG TABLET PO SCH (10:51)
[2019-05-25] MEDS: AMLODIPINE 5MG TABLET PO SCH (10:51)
[2019-05-25] MEDS: GUAIFENESIN 600MG ER TABLET PO SCH (10:51)
[2019-05-25 12:00] VITALS: BP 148/78
[2019-05-25] MEDS ORDERED: AMLO5TAB88 PO (15:06)
[2019-05-25] MEDS ORDERED: METF500T PO (15:06)
[2019-05-25] MEDS ORDERED: MONT10TA21 PO (15:06)
[2019-05-25] MEDS ORDERED: ALBU6.7H INH (15:06)
[2019-05-25 15:41] VITALS: BP 135/67
== END 2019-05-25 16:20 | disposition home or self-care (01) | DRG 133 ==
LOC: ER 07:41 → EDBEDREQ 12:45 → ENRESERV 16:35 → 7WST 17:05 → CANBEDREQ 05-24 01:45
PROVIDERS: ADMIT Internal Medicine; ATTEND Internal Medicine
DX: J96.00 Acute respiratory failure, unspecified whether with hypoxia or hypercapnia (principal); D72.1 Eosinophilia; E66.01 Morbid (severe) obesity due to excess calories; J45.901 Unspecified asthma with (acute) exacerbation; Z68.41 Body mass index [BMI] 40.0-44.9, adult; E11.9 Type 2 diabetes mellitus without complications; J06.9 Acute upper respiratory infection, unspecified; I10 Essential (primary) hypertension; F12.90 Cannabis use, unspecified, uncomplicated; Z79.899 Other long term (current) drug therapy; Z98.891 History of uterine scar from previous surgery; Z88.2 Allergy status to sulfonamides
CPT/HCPCS: 36415; 71045; 80048; 80061; 80305; 82962; 83036; 84484; 84703; 87804; 93005; 96374; 99285; J1815; J2920; J2930; J7611; J7620

== ENCOUNTER 2019-07-14 07:26 | Emergency (ER) | payer MEDICAID ==
[~2019-07-14] VITALS: Ht 165.1 cm; Wt 101.0 kg
[~2019-07-14 07:26] MED LIST changes: -ALBU6.7H INH; +ALBU6.7H11 INH; -AZIT500T5 PO
[2019-07-14] MEDS ORDERED: PREDNISONE 20MG TABLET PO STA (08:31)
[2019-07-14] MEDS ORDERED: IPRATROPIUM/ALBUTEROL 0.5-3(2.5)MG/3ML NEB HHN ONE (08:45)
[2019-07-14 11:45] VITALS: BP 150/75
== END 2019-07-14 12:28 | disposition home or self-care (01) ==
LOC: ER 07:26
DX: J45.901 Unspecified asthma with (acute) exacerbation (principal); H92.03 Otalgia, bilateral
CPT/HCPCS: 71045; 94640; 99283; J7512; J7620; Z7610

== ENCOUNTER 2019-08-09 08:10 | Emergency (ER) | payer MEDICAID ==
[~2019-08-09] VITALS: Ht 165.1 cm; Wt 111.0 kg
[2019-08-09] MEDS ORDERED: PREDNISONE 20MG TABLET PO STA (09:20)
[2019-08-09] MEDS ORDERED: IPRATROPIUM BROMIDE (0.02%) 0.5MG/2.5ML NEB HHN STA ×3 (09:20→11:30)
[2019-08-09] MEDS ORDERED: ALBUTEROL (0.083%) 2.5MG/3ML NEB HHN STA ×3 (09:20→11:30)
[2019-08-09 12:19] VITALS: BP 122/73
== END 2019-08-09 12:21 | disposition home or self-care (01) ==
LOC: ER 08:48
DX: J45.901 Unspecified asthma with (acute) exacerbation (principal); Z79.51 Long term (current) use of inhaled steroids; Z88.3 Allergy status to other anti-infective agents
CPT/HCPCS: 71045; 94640; 99285; J7512; J7610; Z7610

== ENCOUNTER 2019-08-19 12:29 | Inpatient (IN) | payer MEDICAID ==
[~2019-08-19] VITALS: Ht 162.6 cm; Wt 104.9 kg
[2019-08-19] MEDS ORDERED: MAGNESIUM 2 G PREMIX 50 ML IV ONE (13:15)
[2019-08-19] MEDS ORDERED: ALBUTEROL (0.083%) 2.5MG/3ML NEB HHN STA (13:15)
[2019-08-19] MEDS ORDERED: IPRATROPIUM BROMIDE (0.02%) 0.5MG/2.5ML NEB HHN STA (13:15)
[2019-08-19] MEDS ORDERED: METHYLPREDNISOLONE SOD SUCC 125 MG/2 ML VIAL IV STA (13:15)
[2019-08-19 13:37] LABS: BASOPHILS % 0.8 % (0.0-2.0); EOSINOPHILS % 2.4 % (0.0-5.0); HEMOGLOBIN. 12.8 g/dL (12.0-16.0); LYMPHOCYTES % 19.1 % (20.0-50.0); MEAN CORPUSCULAR HEMOGLOBIN 26.3 pg (28.0-32.0); MEAN CORPUSCULAR VOLUME 80.2 fL (81.0-99.0); MEAN PLATELET VOLUME 8.1 fl (7.4-10.4); MONOCYTES % 5.3 % (2.0-8.0); NEUTROPHILS % 72.4 % (40.0-76.0); PLATELET 374 x1000/uL (130-400); RED BLOOD CELL COUNT 4.86 mill/uL (4.2-5.4)
[2019-08-19 13:41] LABS: CHLORIDE 103 mEq/L (98-107)
[2019-08-19 13:50] LABS: BG BASE EXCESS 1.5 mmol/L (-2.0-2.0); BG DEOXYHEMOGLOBIN 0.4 % (0.0-5.0); BG FRACTION INSPIRED OXYGEN 100; BG HCO3 ACT 29.5 mmol/L (22.0-26.0); BG METHEMOGLOBIN 0.2 % (0.0-1.5); BG OXYGEN SATURATION 99.6 % (92.0-98.5); BG OXYHEMOGLOBIN 98.4 % (94.0-97.0); BG PCO2 62.9 mmHg (35.0-45.0); BG PH 7.289 (7.350-7.450); BG PO2 305.3 mmHg (75.0-100.0); BG SAMPLE SITE RIGHT RADIAL; BG TOTAL HEMOGLOBIN 12.9 g/dL (12.0-18.0); BG VENT MODE MASK - NRB
[2019-08-19] MEDS ORDERED: FAMOTIDINE 20MG/2ML VIAL IV ONE (15:30)
[2019-08-19] MEDS ORDERED: HYDROCODONE/ACETAMINOPHEN 5/325MG TABLET PO PRN (18:00)
[2019-08-19] MEDS ORDERED: GUAIFENESIN 200MG/10ML SUGAR FREE UDC PO PRN (18:00)
[2019-08-19] MEDS ORDERED: ACETAMINOPHEN 325MG TABLET PO PRN (18:00)
[2019-08-19] MEDS ORDERED: CLONIDINE 0.1MG TABLET PO PRN (18:00)
[2019-08-19] MEDS ORDERED: LORAZEPAM 0.5MG TABLET PO PRN (18:00)
[2019-08-19] MEDS ORDERED: ONDANSETRON HCL 4MG/2ML INJ IV PRN (18:00)
[2019-08-19] MEDS: IPRATROPIUM/ALBUTEROL 0.5-3(2.5)MG/3ML NEB HHN SCH ×2 (18:08→19:41)
[2019-08-19 19:50] LABS: *AMPHETAMINES SCREEN URINE NEGATIVE (NEGATIVE); *BARBITURATES SCREEN URINE NEGATIVE (NEGATIVE); *BENZODIAZEPINES SCREEN URINE NEGATIVE (NEGATIVE); *COCAINE SCREEN URINE NEGATIVE (NEGATIVE)
[2019-08-19 19:52] LABS: METHADONE URINE SCREEN NEGATIVE (NEGATIVE); PHENCYCLIDINE URINE SCREEN NEGATIVE (NEGATIVE)
[2019-08-19 19:57] LABS: CANNABINOID URINE SCREEN PRESUMTIVE POSITIVE (NEGATIVE)
[2019-08-19] MEDS: METHYLPREDNISOLONE SOD SUCC 125 MG/2 ML VIAL IV SCH (21:29)
[2019-08-19 22:00] VITALS: BP 141/80
[2019-08-19 22:21] VITALS: BP 141/80
[2019-08-20] VITALS (12 sets, daily range): BP systolic 110–153; BP diastolic 41–88
[2019-08-20] MEDS: IPRATROPIUM/ALBUTEROL 0.5-3(2.5)MG/3ML NEB HHN SCH ×6 (00:14→21:02)
[2019-08-20] MEDS: METHYLPREDNISOLONE SOD SUCC 125 MG/2 ML VIAL IV SCH ×2 (04:50→13:49)
[2019-08-20 07:01] LABS: HEMATOCRIT. 37.3 % (36.0-48.0); HEMOGLOBIN. 12.1 g/dL (12.0-16.0); MEAN CORPUSCULAR VOLUME 79.9 fL (81.0-99.0); MEAN PLATELET VOLUME 8.3 fl (7.4-10.4); PLATELET 360 x1000/uL (130-400); RED BLOOD CELL COUNT 4.66 mill/uL (4.2-5.4); RED CELL DISTRIBUTION WIDTH 15.3 % (11.6-14.6)
[2019-08-20 07:18] LABS: CHLORIDE 102 mEq/L (98-107)
[2019-08-20 07:52] LABS: PLATELET ESTIMATE NORMAL
[2019-08-20 13:25] LABS: BG BASE EXCESS -0.8 mmol/L (-2.0-2.0); BG CARBOXYHEMOGLOBIN 0.1 % (0.5-1.5); BG DEOXYHEMOGLOBIN 2.8 % (0.0-5.0); BG FRACTION INSPIRED OXYGEN 32; BG HCO3 ACT 24.3 mmol/L (22.0-26.0); BG METHEMOGLOBIN 0.2 % (0.0-1.5); BG OXYGEN SATURATION 97.2 % (92.0-98.5); BG OXYHEMOGLOBIN 96.9 % (94.0-97.0); BG PO2 87.8 mmHg (75.0-100.0); BG SAMPLE SITE RIGHT RADIAL; BG TOTAL HEMOGLOBIN 12.8 g/dL (12.0-18.0); BG VENT MODE NASAL CANNULA
[2019-08-20] MEDS: FAMOTIDINE 20MG TABLET PO SCH ×2 (13:48→21:54)
[2019-08-20] MEDS: LORATADINE 10MG TABLET PO SCH (16:07)
[2019-08-20] MEDS ORDERED: MONTELUKAST SODIUM 10MG TABLET PO SCH (17:00)
[2019-08-20] MEDS: METFORMIN HCL 500MG TABLET PO SCH (17:20)
[2019-08-20] MEDS: BUDESONIDE 0.5MG/2ML NEB HHN SCH (21:02)
[2019-08-20] MEDS: METHYLPREDNISOLONE SOD SUCC 40 MG/ML VIAL IV SCH (21:54)
[2019-08-20] MEDS: AMLODIPINE 5MG TABLET PO SCH (21:55)
[2019-08-21] VITALS (10 sets, daily range): BP systolic 122–156; BP diastolic 69–85
[2019-08-21] MEDS: IPRATROPIUM/ALBUTEROL 0.5-3(2.5)MG/3ML NEB HHN SCH ×4 (00:11→11:33)
[2019-08-21] MEDS: METHYLPREDNISOLONE SOD SUCC 40 MG/ML VIAL IV SCH ×2 (06:53→14:29)
[2019-08-21 06:56] LABS: CHLORIDE 101 mEq/L (98-107)
[2019-08-21 07:10] LABS: HEMATOCRIT. 37.7 % (36.0-48.0); MEAN CORPUSCULAR HEMOGLOBIN 25.8 pg (28.0-32.0); MEAN CORPUSCULAR VOLUME 80.8 fL (81.0-99.0); MEAN PLATELET VOLUME 8.5 fl (7.4-10.4); PLATELET 361 x1000/uL (130-400); RED BLOOD CELL COUNT 4.66 mill/uL (4.2-5.4)
[2019-08-21] MEDS: AMLODIPINE 5MG TABLET PO SCH (07:40)
[2019-08-21] MEDS: METFORMIN HCL 500MG TABLET PO SCH (07:40)
[2019-08-21] MEDS: FAMOTIDINE 20MG TABLET PO SCH (07:41)
[2019-08-21] MEDS: LORATADINE 10MG TABLET PO SCH (07:41)
[2019-08-21] MEDS: BUDESONIDE 0.5MG/2ML NEB HHN SCH (08:43)
[2019-08-21 11:34] LABS: PLATELET ESTIMATE NORMAL
[2019-08-21] MEDS ORDERED: P20 MT (13:57)
[2019-08-21] MEDS ORDERED: P20 PO (13:57)
[2019-08-24 08:30] LABS: OPIATES URINE SCREEN NEGATIVE (NEGATIVE)
== END 2019-08-21 15:35 | disposition home or self-care (01) | DRG 133 ==
LOC: ER 12:29 → 3WST 15:30 → EDBEDREQ 15:33 → ENRESERV 21:01
PROVIDERS: ADMIT Internal Medicine; ATTEND Internal Medicine
PROC: 5A09357 Assistance with Respiratory Ventilation, Less than 24 Consecutive Hours, Continuous Positive Airway Pressure (ICD-10-PCS; principal; 2019-08-19)
DX: J96.02 Acute respiratory failure with hypercapnia (principal); E66.01 Morbid (severe) obesity due to excess calories; J45.901 Unspecified asthma with (acute) exacerbation; F12.90 Cannabis use, unspecified, uncomplicated; I10 Essential (primary) hypertension; Z77.098 Contact with and (suspected) exposure to other hazardous, chiefly nonmedicinal, chemicals; Z79.84 Long term (current) use of oral hypoglycemic drugs; Z79.899 Other long term (current) drug therapy; Z98.891 History of uterine scar from previous surgery; Z88.1 Allergy status to other antibiotic agents; Z68.39 Body mass index [BMI] 39.0-39.9, adult
CPT/HCPCS: 36415; 36600; 71045; 80048; 80053; 80305; 82375; 82805; 82962; 85025; 94640; 94644; 94660; 96365; 99291; J2920; J2930; J3475; J3490; J7626

== ENCOUNTER 2021-05-01 07:42 | Emergency (ER) | payer BC, MEDICAID ==
[~2021-05-01] VITALS: Ht 165.1 cm; Wt 94.0 kg
[~2021-05-01 07:42] MED LIST changes: -ALBU6.7H11 INH; +ALBU6.7H15 INH; +P20 MT
[2021-05-01] MEDS ORDERED: ALBUTEROL (0.083%) 2.5MG/3ML NEB HHN STA (08:16)
[2021-05-01] MEDS ORDERED: METHYLPREDNISOLONE SOD SUCC 125 MG/2 ML VIAL IV STA (08:16)
[2021-05-01] MEDS ORDERED: IPRATROPIUM BROMIDE (0.02%) 0.5MG/2.5ML NEB HHN STA (08:16)
[2021-05-01] MEDS ORDERED: SODIUM CHLORIDE 0.9% 1,000 ML IV ONE (08:30)
[2021-05-01 08:57] VITALS: BP 143/86
[2021-05-01 09:06] LABS: BASOPHILS % 0.7 % (0.0-2.0); HEMATOCRIT. 38.5 % (36.0-48.0); HEMOGLOBIN. 11.9 g/dL (12.0-16.0); LYMPHOCYTES % 14.4 % (20.0-50.0); MEAN CORPUSCULAR HEMOGLOBIN 24.1 pg (28.0-32.0); MEAN CORPUSCULAR VOLUME 77.7 fL (81.0-99.0); MEAN PLATELET VOLUME 8.4 fl (7.4-10.4); MONOCYTES % 5.5 % (2.0-8.0); NEUTROPHILS % 75.4 % (40.0-76.0); PLATELET 308 x1000/uL (130-400); RED BLOOD CELL COUNT 4.95 mill/uL (4.2-5.4); RED CELL DISTRIBUTION WIDTH 16.1 % (11.6-14.6)
[2021-05-01 09:07] LABS: CHLORIDE 102 mEq/L (98-107)
[2021-05-01] MEDS ORDERED: FLUT12AE7 INH (09:56)
[2021-05-01] MEDS ORDERED: MED4 MT (09:56)
[2021-05-01] MEDS ORDERED: ALBU6.7H9 INH (09:56)
== END 2021-05-01 11:05 | disposition home or self-care (01) ==
LOC: ER 07:42
DX: J45.909 Unspecified asthma, uncomplicated (principal); Z88.8 Allergy status to other drugs, medicaments and biological substances; Z20.822 Contact with and (suspected) exposure to COVID-19
CPT/HCPCS: 36415; 71045; 80053; 83880; 84484; 85025; 87426; 94640; 96361; 96374; 99284; J2930; J7030; Z7610

== ENCOUNTER 2021-06-12 04:57 | Emergency (ER) | payer MEDICAID ==
[~2021-06-12] VITALS: Ht 165.1 cm; Wt 102.0 kg
[~2021-06-12 04:57] MED LIST changes: +ALBU6.7H9 INH; +FLUT12AE7 INH; +MED4 MT
[2021-06-12] MEDS ORDERED: IPRATROPIUM BROMIDE (0.02%) 0.5MG/2.5ML NEB HHN STA (05:03)
[2021-06-12] MEDS ORDERED: PREDNISONE 20MG TABLET PO STA (05:03)
[2021-06-12] MEDS: ALBUTEROL (0.083%) 2.5MG/3ML NEB HHN SCH ×3 (05:18→05:48)
[2021-06-12] MEDS ORDERED: P50 MT (08:36)
[2021-06-12] MEDS ORDERED: ALBU2.5V13 NEB (08:36)
[2021-06-12] MEDS ORDERED: ALBU6.7H15 INH (08:36)
[2021-06-12 08:50] VITALS: BP 147/68
== END 2021-06-12 08:51 | disposition home or self-care (01) ==
LOC: ER 04:57
DX: J45.901 Unspecified asthma with (acute) exacerbation (principal); I10 Essential (primary) hypertension; Z98.890 Other specified postprocedural states; Z79.899 Other long term (current) drug therapy; Z88.8 Allergy status to other drugs, medicaments and biological substances
CPT/HCPCS: 94640; 99285; J7512; Z7610

== ENCOUNTER 2021-06-22 01:09 | Emergency (ER) | payer MEDICAID ==
[~2021-06-22] VITALS: Ht 165.1 cm; Wt 107.0 kg
[~2021-06-22 01:09] MED LIST changes: +ALBU2.5V13 NEB; +P50 MT
[2021-06-22] MEDS ORDERED: ALBUTEROL (0.083%) 2.5MG/3ML NEB HHN STA (01:14)
[2021-06-22] MEDS ORDERED: IPRATROPIUM BROMIDE (0.02%) 0.5MG/2.5ML NEB HHN STA (01:14)
[2021-06-22] MEDS ORDERED: ACETAMINOPHEN 325MG TABLET PO STA (01:14)
[2021-06-22] MEDS ORDERED: METHYLPREDNISOLONE SOD SUCC 125 MG/2 ML VIAL IM STA (01:14)
[2021-06-22] MEDS ORDERED: P50 MT (01:54)
[2021-06-22] MEDS ORDERED: ALBU05 NEB (01:54)
[2021-06-22] MEDS ORDERED: ALBU90AE INH (01:54)
[2021-06-22] MEDS ORDERED: PREDNISONE 20MG TABLET PO NR (02:00)
[2021-06-22] MEDS ORDERED: IBUPROFEN 600MG TABLET PO STA (03:55)
[2021-06-22 04:10] VITALS: BP 131/80
== END 2021-06-22 04:11 | disposition home or self-care (01) ==
LOC: ER 01:09
DX: J45.901 Unspecified asthma with (acute) exacerbation (principal); Z20.822 Contact with and (suspected) exposure to COVID-19; Z88.8 Allergy status to other drugs, medicaments and biological substances; Z98.890 Other specified postprocedural states
CPT/HCPCS: 94640; 99283; C9803; J7512; U0003; U0005; Z7610

== ENCOUNTER 2022-09-05 11:34 | Inpatient (IN) | payer MEDICAID ==
[~2022-09-05] VITALS: Ht 165.1 cm; Wt 104.6 kg
[~2022-09-05 11:34] MED LIST changes: +ALBU05 NEB; +ALBU6.7H3 INH; -ALBU6.7H9 INH; +ALBU90AE INH; +MONT-46 PO; -MONT10TA21 PO
[2022-09-05] MEDS ORDERED: MAGNESIUM 2 G PREMIX 50 ML IV STA (11:52)
[2022-09-05] MEDS ORDERED: IPRATROPIUM BROMIDE (0.02%) 0.5MG/2.5ML NEB HHN STA (11:52)
[2022-09-05] MEDS ORDERED: ALBUTEROL (0.083%) 2.5MG/3ML NEB HHN STA (11:52)
[2022-09-05] MEDS ORDERED: PREDNISONE 20MG TABLET PO ONE (12:00)
[2022-09-05 12:20] LABS: HEMATOCRIT 42.5 % (36.0-48.0); HEMOGLOBIN 13.4 g/dL (12.0-16.0); MEAN CORPUSCULAR HEMOGLOBIN 26.4 pg (28.0-32.0); MEAN CORPUSCULAR VOLUME 83.7 fL (81.0-99.0); PLATELET 289 x1000/uL (130-400); RED BLOOD CELL COUNT 5.08 mill/uL (4.2-5.4); RED CELL DISTRIBUTION WIDTH 16.4 % (11.6-14.6)
[2022-09-05 12:31] LABS: CHLORIDE 104 mEq/L (98-107)
[2022-09-05] MEDS ORDERED: ASPIRIN 325MG EC TABLET PO ONE (13:45)
[2022-09-05 17:41] VITALS: BP 183/106
[2022-09-05 18:00] VITALS: BP 159/89
[2022-09-05 20:00] VITALS: BP 155/90
[2022-09-05] MEDS ORDERED: IPRATROPIUM/ALBUTEROL 0.5-3(2.5)MG/3ML NEB HHN PRN (20:15)
[2022-09-05] MEDS ORDERED: HYDROCODONE/ACETAMINOPHEN 10/325MG TABLET PO PRN (20:15)
[2022-09-05] MEDS ORDERED: NALOXONE HCL 0.4MG/ML VIAL IV PRN (20:30)
[2022-09-05] MEDS: AMLODIPINE 10MG TABLET PO SCH (21:23)
[2022-09-05] MEDS: ENOXAPARIN 30MG/0.3ML SYR SUBCUT SCH (21:25)
[2022-09-06] VITALS (7 sets, daily range): BP systolic 144–164; BP diastolic 78–107
[2022-09-06] MEDS: IPRATROPIUM/ALBUTEROL 0.5-3(2.5)MG/3ML NEB HHN SCH ×6 (00:31→20:38)
[2022-09-06] MEDS ORDERED: AMLODIPINE 10MG TABLET PO SCH (09:00)
[2022-09-06] MEDS: ENOXAPARIN 30MG/0.3ML SYR SUBCUT SCH ×2 (09:28→21:00)
[2022-09-06] MEDS: METHYLPREDNISOLONE SOD SUCC 40 MG/ML VIAL IV SCH ×2 (09:28→17:48)
[2022-09-06] MEDS: AMLODIPINE 10MG TABLET PO SCH (09:30)
[2022-09-06] MEDS ORDERED: AZITHROMYCIN 500 MG TABLET PO NR (13:15)
[2022-09-06] MEDS ORDERED: FLUT1DIS3 INH (13:23)
[2022-09-06] MEDS: GUAIFENESIN 600MG ER TABLET PO SCH (14:24)
[2022-09-06] MEDS ORDERED: MONTELUKAST SODIUM 10MG TABLET PO SCH (17:00)
[2022-09-06] MEDS ORDERED: CLONIDINE 0.1MG TABLET PO PRN (20:30)
[2022-09-06] MEDS: BUDESONIDE 0.5MG/2ML NEB HHN SCH (20:39)
[2022-09-06] MEDS: FAMOTIDINE 20MG TABLET PO SCH (20:59)
[2022-09-07 00:05] VITALS: BP 162/102
[2022-09-07] MEDS: GUAIFENESIN 600MG ER TABLET PO SCH ×2 (00:08→08:03)
[2022-09-07] MEDS: METHYLPREDNISOLONE SOD SUCC 40 MG/ML VIAL IV SCH ×2 (00:08→06:21)
[2022-09-07] MEDS: IPRATROPIUM/ALBUTEROL 0.5-3(2.5)MG/3ML NEB HHN SCH ×3 (00:12→09:43)
[2022-09-07 08:00] VITALS: BP 153/87
[2022-09-07] MEDS: AMLODIPINE 10MG TABLET PO SCH (08:03)
[2022-09-07] MEDS: ENOXAPARIN 30MG/0.3ML SYR SUBCUT SCH (08:03)
[2022-09-07] MEDS: FAMOTIDINE 20MG TABLET PO SCH (08:03)
[2022-09-07] MEDS ORDERED: AZITHROMYCIN 250 MG TABLET PO SCH (09:00)
[2022-09-07] MEDS ORDERED: LORATADINE 10MG TABLET PO SCH (09:00)
[2022-09-07] MEDS: BUDESONIDE 0.5MG/2ML NEB HHN SCH (09:44)
[2022-09-07 09:51] VITALS: BP 153/87
== END 2022-09-07 14:49 | disposition home or self-care (01) | DRG 141 ==
LOC: ER 11:34 → EDBEDREQ 15:43 → EDBEDREQTM 15:43 → 3WST 16:57
PROVIDERS: ADMIT Internal Medicine; ATTEND Internal Medicine
DX: J45.901 Unspecified asthma with (acute) exacerbation (principal); J96.01 Acute respiratory failure with hypoxia; E44.1 Mild protein-calorie malnutrition; E11.9 Type 2 diabetes mellitus without complications; I16.0 Hypertensive urgency; E66.9 Obesity, unspecified; Z68.38 Body mass index [BMI] 38.0-38.9, adult; F12.90 Cannabis use, unspecified, uncomplicated; Z98.891 History of uterine scar from previous surgery; Z88.1 Allergy status to other antibiotic agents
CPT/HCPCS: 36415; 71045; 80053; 83880; 84484; 85027; 93005; 94640; 94644; 99285; J1650; J2920; J3475; J7512; J7626

== ENCOUNTER 2022-10-05 22:17 | Emergency (ER) | payer BC, MEDICAID ==
[~2022-10-05] VITALS: Ht 162.6 cm; Wt 114.0 kg
[~2022-10-05 22:17] MED LIST changes: +FLUT1DIS3 INH
[2022-10-05 22:22] VITALS: BP 163/84
[2022-10-05] MEDS ORDERED: PREDNISONE 20MG TABLET PO STA (22:45)
[2022-10-05] MEDS ORDERED: ALBUTEROL (0.083%) 2.5MG/3ML NEB HHN STA (22:45)
[2022-10-05] MEDS ORDERED: IPRATROPIUM BROMIDE (0.02%) 0.5MG/2.5ML NEB HHN STA (22:45)
== END 2022-10-05 23:41 | disposition left against medical advice (07) ==
LOC: ER 22:43
DX: R06.02 Shortness of breath (principal); J45.909 Unspecified asthma, uncomplicated; F12.90 Cannabis use, unspecified, uncomplicated; Z88.1 Allergy status to other antibiotic agents
CPT/HCPCS: 93005; 94640; 99283; J7512; Z7610

== ENCOUNTER 2023-01-17 10:42 | Inpatient (IN) | payer BC, MEDICAID ==
[~2023-01-17] VITALS: Ht 165.1 cm; Wt 106.6 kg
[2023-01-17] MEDS ORDERED: ALBUTEROL (0.083%) 2.5MG/3ML NEB HHN STA (11:23)
[2023-01-17] MEDS ORDERED: IPRATROPIUM BROMIDE (0.02%) 0.5MG/2.5ML NEB HHN STA (11:23)
[2023-01-17] MEDS ORDERED: METHYLPREDNISOLONE SOD SUCC 125MG/2ML (ACT-O-VIAL) IV STA (11:23)
[2023-01-17] MEDS: METHYLPREDNISOLONE SOD SUCC 125MG VIAL IV NR ×2 (11:27→15:25)
[2023-01-17 11:35] VITALS: PULSE 90; RESP 24; O2SAT 99
[2023-01-17] MEDS ORDERED: MAGNESIUM 2 G PREMIX 50 ML IV ONE (11:45)
[2023-01-17 11:57] LABS: BASOPHILS % 0.7 % (0.0-2.0); DIFFERENTIAL COMMENT 0; HEMATOCRIT. 40.4 % (36.0-48.0); HEMOGLOBIN. 13.1 g/dL (12.0-16.0); LYMPHOCYTES % 15.5 % (20.0-50.0); MEAN CORPUSCULAR HEMOGLOBIN 25.1 pg (28.0-32.0); MEAN CORPUSCULAR HGB CONC 32.3 g/dL (31.0-37.0); MEAN CORPUSCULAR VOLUME 77.6 fL (81.0-99.0); MEAN PLATELET VOLUME 8.2 fl (7.4-10.4); MONOCYTES % 12.7 % (2.0-8.0); NEUTROPHILS % 69.1 % (40.0-76.0); PLATELET 235 x1000/uL (130-400); RED BLOOD CELL COUNT 5.21 mill/uL (4.2-5.4); WHITE BLOOD COUNT 5.5 x1000/uL (4.5-11.0)
[2023-01-17 12:07] LABS: CHLORIDE 103 mEq/L (98-107); INDEX HEMOLYSI 1 (1-3); INDEX ICTERIC 1 (1-4); INDEX LIPEMIC 1 (1-3); POTASSIUM 3.5 mEq/L (3.5-5.1); SODIUM 136 mEq/L (136-145)
[2023-01-17 12:15] LABS: ALANINE AMINOTRANSFERASE 27 IU/L (13-61); ALBUMIN 3.3 g/dL (3.4-5.0); ASPARTATE AMINOTRANSFERASE 23 IU/L (15-37); BILIRUBIN TOTAL 0.4 mg/dL (0.1-1.0); CALCIUM 8.6 mg/dL (8.5-10.1); CARBON DIOXIDE 27 mEq/L (21-32); CREATININE 0.7 mg/dL (0.6-1.3); GLUCOSE 100 mg/dL (70-105); PROTEIN TOTAL 7.5 g/dL (6.0-8.3); UREA NITROGEN BLOOD 8 mg/dL (7-21)
[2023-01-17] MEDS ORDERED: EPINEPHRINE 1:1000 1 MG/ML AMP IM ONE (12:15)
[2023-01-17 12:32] LABS: HCG SCREEN NEGATIVE
[2023-01-17] MEDS ORDERED: MORPHINE SULFATE 4 MG/ML CPJ (NOT FOR IM USE) IV ONE (13:00)
[2023-01-17 17:30] VITALS: BP 131/95; PULSE 80; RESP 18; TEMP 97.6
[2023-01-17 17:44] VITALS: BP 134/97; PULSE 82; RESP 18; TEMP 97.6
[2023-01-17] MEDS ORDERED: HYDROCODONE/ACETAMINOPHEN 5/325MG TABLET PO PRN (18:15)
[2023-01-17] MEDS ORDERED: ONDANSETRON HCL 4MG/2ML INJ IV PRN (18:15)
[2023-01-17] MEDS ORDERED: LORAZEPAM 0.5MG TABLET PO PRN (18:15)
[2023-01-17] MEDS ORDERED: DOCUSATE SODIUM 100MG CAPSULE PO PRN (18:15)
[2023-01-17] MEDS ORDERED: NALOXONE HCL 0.4MG/ML VIAL IV PRN (18:15)
[2023-01-17] MEDS ORDERED: ACETAMINOPHEN 325MG TABLET PO PRN (18:15)
[2023-01-17] MEDS: METHYLPREDNISOLONE SOD SUCC 40MG VIAL IV SCH (19:30)
[2023-01-17 20:00] VITALS: BP 167/108; PULSE 75; RESP 18; TEMP 98.1
[2023-01-18] VITALS (8 sets, daily range): BP systolic 140–183; BP diastolic 87–119; PULSE 66–80; RESP 17–24; TEMP 97.1–98.1; O2SAT 94–96
[2023-01-18] MEDS: IPRATROPIUM/ALBUTEROL 0.5-3(2.5)MG/3ML NEB HHN PRN ×2 (00:50→06:06)
[2023-01-18] MEDS: METHYLPREDNISOLONE SOD SUCC 40MG VIAL IV SCH ×3 (01:58→17:24)
[2023-01-18] MEDS: CLONIDINE 0.1MG TABLET PO PRN ×2 (04:19→15:23)
[2023-01-18 07:19] LABS: HEMATOCRIT. 43.5 % (36.0-48.0); MEAN CORPUSCULAR HEMOGLOBIN 24.9 pg (28.0-32.0); MEAN CORPUSCULAR HGB CONC 32.1 g/dL (31.0-37.0); MEAN CORPUSCULAR VOLUME 77.8 fL (81.0-99.0); MEAN PLATELET VOLUME 8.8 fl (7.4-10.4); PLATELET 274 x1000/uL (130-400); RED CELL DISTRIBUTION WIDTH 16.8 % (11.6-14.6); WHITE BLOOD COUNT 7.8 x1000/uL (4.5-11.0)
[2023-01-18 07:39] LABS: DIFFERENTIAL COMMENT 1
[2023-01-18 08:00] LABS: CHLORIDE 101 mEq/L (98-107); INDEX HEMOLYSI 1 (1-3); INDEX ICTERIC 1 (1-4); INDEX LIPEMIC 1 (1-3); POTASSIUM 5.4 mEq/L (3.5-5.1); SODIUM 133 mEq/L (136-145)
[2023-01-18 08:07] LABS: CALCIUM 9.1 mg/dL (8.5-10.1); CARBON DIOXIDE 29 mEq/L (21-32); CREATININE 0.6 mg/dL (0.6-1.3); GLUCOSE 137 mg/dL (70-105); UREA NITROGEN BLOOD 13 mg/dL (7-21)
[2023-01-18 10:45] LABS: PLATELET ESTIMATE NORMAL
[2023-01-18] MEDS ORDERED: SODIUM POLYSTYRENE SULFONATE 15 G/60 ML BOT PO SCH (12:00)
[2023-01-18] MEDS: SODIUM CHLORIDE 0.9% 1,000 ML IV SCH (12:30)
[2023-01-18] MEDS ORDERED: MONTELUKAST SODIUM 10MG TABLET PO SCH (17:00)
[2023-01-18] MEDS: IPRATROPIUM/ALBUTEROL 0.5-3(2.5)MG/3ML NEB HHN SCH (19:59)
[2023-01-18] MEDS: FAMOTIDINE 20MG TABLET PO SCH (20:08)
[2023-01-18] MEDS: AMLODIPINE 5MG TABLET PO SCH (20:08)
[2023-01-19] VITALS (8 sets, daily range): BP systolic 137–158; BP diastolic 82–92; PULSE 65–84; RESP 18–24; TEMP 97–98; O2SAT 94–96
[2023-01-19] MEDS: METHYLPREDNISOLONE SOD SUCC 40MG VIAL IV SCH ×2 (01:09→10:23)
[2023-01-19] MEDS: ACETAMINOPHEN 325MG TABLET PO PRN ×2 (01:17→08:48)
[2023-01-19] MEDS: IPRATROPIUM/ALBUTEROL 0.5-3(2.5)MG/3ML NEB HHN SCH ×3 (01:22→13:48)
[2023-01-19] MEDS: SODIUM CHLORIDE 0.9% 1,000 ML IV SCH (04:40)
[2023-01-19] MEDS: FAMOTIDINE 20MG TABLET PO SCH (08:42)
[2023-01-19] MEDS: AMLODIPINE 5MG TABLET PO SCH (08:42)
[2023-01-19] MEDS ORDERED: MED4 MT (14:48)
[2023-01-19] MEDS ORDERED: FLUT1DIS3 INH (14:48)
== END 2023-01-19 16:45 | disposition left against medical advice (07) | DRG 141 ==
LOC: ER 10:42 → EDBEDREQTM 12:38 → EDBEDREQ 12:38 → 7WST 17:01
PROVIDERS: ADMIT Internal Medicine; ATTEND Internal Medicine
DX: J45.901 Unspecified asthma with (acute) exacerbation (principal); J96.00 Acute respiratory failure, unspecified whether with hypoxia or hypercapnia; E44.0 Moderate protein-calorie malnutrition; E11.9 Type 2 diabetes mellitus without complications; E66.9 Obesity, unspecified; F12.90 Cannabis use, unspecified, uncomplicated; G47.33 Obstructive sleep apnea (adult) (pediatric); D72.825 Bandemia; Z53.29 Procedure and treatment not carried out because of patient's decision for other reasons; I10 Essential (primary) hypertension; Z98.891 History of uterine scar from previous surgery; Z87.891 Personal history of nicotine dependence; Z68.39 Body mass index [BMI] 39.0-39.9, adult
CPT/HCPCS: 36415; 71045; 80048; 80053; 84703; 85025; 93005; 94640; 94644; 99291; C1893; J2270; J2920; J2930; J3475; J3490; J7030

== ENCOUNTER 2023-10-10 10:44 | Emergency (ER) | payer BC, MEDICAID ==
[~2023-10-10] VITALS: Ht 165.1 cm; Wt 100.0 kg
[~2023-10-10 10:44] MED LIST changes: -ALBU05 NEB; -ALBU2.5V13 NEB; -ALBU6.7H15 INH; -ALBU6.7H3 INH; +AZIT250T12 MT; -FLUT12AE7 INH; -P20 MT; -P20 PO; -P50 MT
[2023-10-10] MEDS ORDERED: METHYLPREDNISOLONE SOD SUCC 40MG VIAL IV ONE (11:30)
[2023-10-10] MEDS: METHYLPREDNISOLONE SOD SUCC 125MG/2ML (ACT-O-VIAL) IV NR (11:33)
[2023-10-10 11:40] VITALS: PULSE 120; RESP 29; O2SAT 88
[2023-10-10] MEDS: ALBUTEROL (0.083%) 2.5MG/3ML NEB HHN ONE (11:40)
[2023-10-10] MEDS: IPRATROPIUM BROMIDE (0.02%) 0.5MG/2.5ML NEB HHN ONE (11:40)
[2023-10-10] MEDS ORDERED: FLUT1DIS3 INH (13:11)
[2023-10-10] MEDS ORDERED: P50 MT (13:11)
[2023-10-10 13:21] VITALS: BP 161/86; PULSE 83; RESP 18; TEMP 98.7
== END 2023-10-10 13:22 | disposition home or self-care (01) ==
LOC: ER 11:00
DX: J45.901 Unspecified asthma with (acute) exacerbation (principal); I10 Essential (primary) hypertension; Z98.890 Other specified postprocedural states; Z88.8 Allergy status to other drugs, medicaments and biological substances
CPT/HCPCS: 94640; 93005; 96374; 99283; J2919; Z7610 ×7; J2920

== ENCOUNTER 2023-12-03 08:22 | Emergency (ER) | payer BC ==
[~2023-12-03] VITALS: Ht 165.1 cm; Wt 104.0 kg
[~2023-12-03 08:22] MED LIST changes: +P50 MT
[2023-12-03 08:37] VITALS: O2SAT 97
[2023-12-03] MEDS: BALANCED SALT IRRIG SOLN 15ML IR ONE (08:45)
[2023-12-03] MEDS: FLUORESCEIN SODIUM 1MG/STRIP LEFTEYE ONE (08:45)
[2023-12-03] MEDS: IBUPROFEN 400MG TABLET PO ONE (08:45)
[2023-12-03] MEDS: TETRACAINE 0.5% OPHTH DROPS 4ML LEFTEYE ONE (08:45)
[2023-12-03] MEDS ORDERED: FLUORESCEIN SODIUM 1MG/STRIP LEFTEYE NR (09:15)
[2023-12-03] MEDS: FLUORESCEIN SODIUM 1MG/STRIP LEFTEYE NR (09:15)
[2023-12-03] MEDS: IBUPROFEN 400MG TABLET PO NR (09:15)
[2023-12-03] MEDS: TETRACAINE 0.5% OPHTH DROPS 4ML LEFTEYE NR (09:15)
[2023-12-03] MEDS ORDERED: OCUFLX LEFTEYE (09:26)
[2023-12-03 10:02] VITALS: BP 138/74; PULSE 76; RESP 18; TEMP 98.7
== END 2023-12-03 10:03 | disposition home or self-care (01) ==
LOC: ER 08:22
DX: S05.02XA Injury of conjunctiva and corneal abrasion without foreign body, left eye, initial encounter (principal); J45.909 Unspecified asthma, uncomplicated; I10 Essential (primary) hypertension; Z88.8 Allergy status to other drugs, medicaments and biological substances; X58.XXXA Exposure to other specified factors, initial encounter; Y93.89 Activity, other specified; Y92.89 Other specified places as the place of occurrence of the external cause; Y99.8 Other external cause status
CPT/HCPCS: 99283

== ENCOUNTER 2024-03-31 13:14 | Inpatient (IN) | payer BC, MEDICAID ==
[~2024-03-31] VITALS: Ht 165.1 cm; Wt 97.5 kg
[~2024-03-31 13:14] MED LIST changes: -MED4 MT; +METH4TAB95 MT; +OCUFLX LEFTEYE
[2024-03-31] MEDS: ALBUTEROL (0.083%) 2.5MG/3ML NEB HHN STA (13:55)
[2024-03-31 13:56] VITALS: PULSE 67; RESP 20; O2SAT 92
[2024-03-31] MEDS: IPRATROPIUM BROMIDE (0.02%) 0.5MG/2.5ML NEB HHN STA (13:56)
[2024-03-31] MEDS: PREDNISONE 20MG TABLET PO STA (14:20)
[2024-03-31 14:33] LABS: BASOPHILS % 0.9 % (0.0-2.0); EOSINOPHILS % 7.8 % (0.0-5.0); HEMOGLOBIN. 13.7 g/dL (12.0-16.0); LYMPHOCYTES % 24.7 % (20.0-50.0); MEAN CORPUSCULAR HEMOGLOBIN 27.9 pg (28.0-32.0); MEAN CORPUSCULAR HGB CONC 33.4 g/dL (31.0-37.0); MEAN CORPUSCULAR VOLUME 83.5 fL (81.0-99.0); MEAN PLATELET VOLUME 8.3 fl (7.4-10.4); MONOCYTES % 7.5 % (2.0-8.0); NEUTROPHILS % 59.1 % (40.0-76.0); PLATELET 298 x1000/uL (130-400); RED BLOOD CELL COUNT 4.91 mill/uL (4.2-5.4); RED CELL DISTRIBUTION WIDTH 15.5 % (11.6-14.6); WHITE BLOOD COUNT 7.1 x1000/uL (4.5-11.0)
[2024-03-31 14:39] LABS: CHLORIDE 108 mEq/L (98-107); POTASSIUM 3.9 mEq/L (3.5-5.1); SODIUM 140 mEq/L (136-145)
[2024-03-31 14:40] LABS: CARBON DIOXIDE 30 mEq/L (21-32)
[2024-03-31 14:41] LABS: CALCIUM 9.4 mg/dL (8.7-10.4)
[2024-03-31 14:45] LABS: CREATININE 0.8 mg/dL (0.6-1.0); GLUCOSE 137 mg/dL (70-105); UREA NITROGEN BLOOD 13 mg/dL (9-23)
[2024-03-31 15:31] VITALS: PULSE 61; RESP 20; O2SAT 92
[2024-03-31] MEDS: IPRATROPIUM BROMIDE (0.02%) 0.5MG/2.5ML NEB HHN ONE (15:31)
[2024-03-31] MEDS: ALBUTEROL (0.083%) 2.5MG/3ML NEB HHN ONE (15:31)
[2024-03-31] MEDS: MAGNESIUM 2 G PREMIX 50 ML IV ONE (17:06)
[2024-03-31 20:00] VITALS: BP 174/104; PULSE 59; RESP 19; TEMP 36.16956; O2SAT 93
[2024-03-31 20:41] VITALS: BP 138/80; PULSE 80; RESP 20; TEMP 36.16956; O2SAT 93
[2024-03-31 20:47] VITALS: BP 138/80; PULSE 80; RESP 20; TEMP 36.1956
[2024-03-31] MEDS ORDERED: ACETAMINOPHEN 325MG TABLET PO PRN (21:00)
[2024-03-31 21:20] VITALS: PULSE 86; RESP 18; O2SAT 93
[2024-03-31] MEDS: IPRATROPIUM/ALBUTEROL 0.5-3(2.5)MG/3ML NEB HHN PRN (21:20)
[2024-03-31] MEDS ORDERED: AMLO10TA80 MT (21:26)
[2024-03-31] MEDS ORDERED: [UNRECOGNIZED DRUG - CODE] PO (21:27)
[2024-03-31] MEDS ORDERED: HEPARIN 5000 UNITS/ML VIAL SUBCUT SCH (22:00)
[2024-03-31 22:13] LABS: TRIGLYCERIDE 52 mg/dL (0-150)
[2024-03-31 22:14] LABS: LDL CHOLESTEROL 136 mg/dL (5-100)
[2024-03-31 22:15] LABS: CHOLESTEROL 178 mg/dL (<200); HDL CHOLESTEROL 44 mg/dL (>65)
[2024-03-31 22:18] LABS: THYROID STIMULATING HORMONE 0.79 uIU/mL (0.55-4.78)
[2024-03-31] MEDS: HEPARIN 5000 UNITS/ML VIAL SUBCUT SCH (22:34)
[2024-04-01] VITALS (8 sets, daily range): BP systolic 129–178; BP diastolic 70–102; PULSE 58–76; RESP 14–20; TEMP 36.16956–37.00296; O2SAT 94–100
[2024-04-01 00:47] LABS: TROPONIN I HIGH SENSITIVITY < 4 ng/L (3.0-34)
[2024-04-01] MEDS: INFLUENZA VACCINE 05/PF 0.5 ML SYRINGE IM ONE (05:26)
[2024-04-01 06:00] LABS: TROPONIN I HIGH SENSITIVITY 6 ng/L (3.0-34)
[2024-04-01 06:19] LABS: CLARITY URINE CLEAR (CLEAR); COLOR URINE YELLOW (YELLOW); GLUCOSE URINE TRACE (NEGATIVE); KETONES URINE NEGATIVE (NEGATIVE); LEUKOCYTE ESTERASE URINE NEGATIVE (NEGATIVE); NITRITE URINE NEGATIVE (NEGATIVE); OCCULT BLOOD URINE 3+ (NEGATIVE); PROTEIN URINE 1+ (NEGATIVE); SPECIFIC GRAVITY URINE 1.027 (1.005-1.030); UROBILINOGEN URINE 0.2 E.U./dL (0.2-1.0)
[2024-04-01 06:43] LABS: *AMPHETAMINES SCREEN URINE NEGATIVE (NEGATIVE); *BARBITURATES SCREEN URINE NEGATIVE (NEGATIVE); *BENZODIAZEPINES SCREEN URINE NEGATIVE (NEGATIVE); *COCAINE SCREEN URINE NEGATIVE (NEGATIVE); METHADONE URINE SCREEN NEGATIVE (NEGATIVE); OPIATES URINE SCREEN NEGATIVE (NEGATIVE); PHENCYCLIDINE URINE SCREEN NEGATIVE (NEGATIVE)
[2024-04-01 06:44] LABS: CANNABINOID URINE SCREEN PRESUMPTIVE POSITIVE (NEGATIVE); ECSTASY MDMA SCREEN URINE NEGATIVE (NEGATIVE)
[2024-04-01 07:25] LABS: BACTERIA URINE TRACE; SQUAMOUS EPITHELIAL CELL URINE FEW /lpf (RARE/1+); WBC URINE 0-2 /hpf (0-2)
[2024-04-01] MEDS: CLONIDINE 0.1MG TABLET PO PRN (09:01)
[2024-04-01] MEDS: LORATADINE 10MG TABLET PO SCH (13:50)
[2024-04-01] MEDS: PREDNISONE 20MG TABLET PO SCH (13:51)
[2024-04-01] MEDS: FAMOTIDINE 20MG/2ML VIAL IV SCH (13:57)
[2024-04-01] MEDS: MONTELUKAST SODIUM 10MG TABLET PO SCH (16:24)
[2024-04-02] VITALS (7 sets, daily range): BP systolic 118–153; BP diastolic 66–98; PULSE 62–66; RESP 18–20; TEMP 36.33624–36.89184; O2SAT 97–98
[2024-04-02] MEDS ORDERED: P20 MT (09:10)
[2024-04-02] MEDS ORDERED: MONT-46 PO (09:10)
[2024-04-02] MEDS ORDERED: ALBU90AE INH (09:10)
[2024-04-02] MEDS ORDERED: CLAR10 PO (09:10)
[2024-04-02] MEDS ORDERED: FLUT1DIS3 INH (09:10)
[2024-04-02] MEDS ORDERED: FAMO20TA8 PO (09:10)
== END 2024-04-02 17:09 | disposition home or self-care (01) | DRG 133 ==
LOC: ER 13:14 → EDBEDREQ 16:10 → EDBEDREQTM 18:04 → EDBEDREQ 18:04 → 7WST 20:07
PROVIDERS: ADMIT Internal Medicine; ATTEND Internal Medicine
DX: J96.00 Acute respiratory failure, unspecified whether with hypoxia or hypercapnia (principal); J45.901 Unspecified asthma with (acute) exacerbation; I10 Essential (primary) hypertension; R80.9 Proteinuria, unspecified; M25.511 Pain in right shoulder; Z79.51 Long term (current) use of inhaled steroids; Z79.899 Other long term (current) drug therapy; Z88.1 Allergy status to other antibiotic agents
CPT/HCPCS: 36415; 71045; 80048; 80061; 80305; 81003; 83735; 83880; 84443; 84484; 85025; 90686; 93005; 94640; 99285; J1644; J3475; J3490; J7512

== ENCOUNTER 2024-05-10 11:40 | Emergency (ER) | payer BC, MEDICAID ==
[~2024-05-10] VITALS: Ht 165.1 cm; Wt 100.0 kg
[~2024-05-10 11:40] MED LIST changes: +AMLO10TA80 MT; -AMLO5TAB88 PO; -AZIT250T12 MT; +CLAR10 PO; -METF500T PO; -METH4TAB95 MT; -OCUFLX LEFTEYE; +P20 MT; -P50 MT
[2024-05-10 11:42] VITALS: O2SAT 94
[2024-05-10 12:00] VITALS: BP 162/107; TEMP 98.5
[2024-05-10] MEDS: ALBUTEROL (0.083%) 2.5MG/3ML NEB HHN ONE (12:45)
[2024-05-10] MEDS: IPRATROPIUM BROMIDE (0.02%) 0.5MG/2.5ML NEB HHN ONE (12:45)
[2024-05-10 14:00] VITALS: PULSE 72; RESP 24; O2SAT 94
[2024-05-10] MEDS ORDERED: ALBU05 NEB (14:39)
[2024-05-10] MEDS ORDERED: P50 MT (14:39)
[2024-05-10] MEDS ORDERED: ALBU18HF2 IH (14:39)
== END 2024-05-10 14:57 | disposition home or self-care (01) ==
LOC: ER 11:40
DX: J45.901 Unspecified asthma with (acute) exacerbation (principal); I10 Essential (primary) hypertension; Z88.1 Allergy status to other antibiotic agents
CPT/HCPCS: 71045; 94640; 99291; Z7610 ×3

== ENCOUNTER 2025-03-26 13:29 | Emergency (ER) | payer MEDICARE, BC ==
[~2025-03-26] VITALS: Ht 172.7 cm; Wt 99.0 kg
[~2025-03-26 13:29] MED LIST changes: +ALBU18HF2 IH; -ALBU90AE INH; +BUDE6.9H INH; -FLUT1DIS3 INH; +LOSA25TA26 PO; +METF-414 PO; -MONT-46 PO
[2025-03-26] MEDS: DEXAMETHASONE 10 MG/ML VIAL IV ONE (17:00)
[2025-03-26 17:11] VITALS: PULSE 97; RESP 25; O2SAT 98
[2025-03-26 17:11] LABS: INFLUENZA TYPE A Presumptive Negative (Pres. Neg.); INFLUENZA TYPE B Presumptive Negative (Pres. Neg.)
[2025-03-26] MEDS: IPRATROPIUM/ALBUTEROL 0.5-3(2.5)MG/3ML NEB HHN ONE (17:11)
[2025-03-26 17:12] LABS: RESPIRATORY SYNCYTIAL VIRUS Not Detected (Not Detectd)
[2025-03-26] MEDS ORDERED: ALBU18HF2 IH (18:25)
[2025-03-26] MEDS ORDERED: METH4TAB95 MT (18:25)
[2025-03-26 18:34] VITALS: BP 132/79; PULSE 90; RESP 20; TEMP 36.6; O2SAT 98
== END 2025-03-26 18:35 | disposition home or self-care (01) ==
LOC: ER 14:44
DX: R05.9 Cough, unspecified (principal); J45.901 Unspecified asthma with (acute) exacerbation; I10 Essential (primary) hypertension; Z79.899 Other long term (current) drug therapy; Z88.1 Allergy status to other antibiotic agents; Z20.822 Contact with and (suspected) exposure to COVID-19
CPT/HCPCS: 99284; 96374; 71045; 87426; 81025; 87420; 87804 ×2; 94640; J1100